=== PATIENT | female | born 1955 | race Two or more races ===

== ENCOUNTER 2020-03-28 08:34 | Outpatient (REF) | payer OTHER, SELFPAY ==
--- NOTE | 2020-03-28 08:41 | MM_ITS ---
EXAMINATION: MM SCREENING DIGITAL BREAST TOMOSYNTHESIS, BILATERAL CLINICAL INFORMATION: Screening. Asymptomatic. The lifetime risk of breast cancer based on the Tyrer-Cuzick Model is 8%. COMPARISON: Mammography: 05/08/2017, 06/18/2014 TECHNIQUE: Digital breast tomosynthesis is performed in both the craniocaudal and mediolateral oblique views along with computer-aided detection (CAD). Synthesized 2D images are generated from the tomosynthesis. FINDINGS: There are scattered areas of fibroglandular density (ACR BI-RADS breast composition Category b). There are no significant masses, abnormal calcifications, or other abnormalities. Parenchymal pattern is similar to prior exams. Nodular asymmetry posterior central 6:00 position right breast is stable. There is no developing density. The axilla and skin contours are unremarkable. IMPRESSION: No significant changes from prior study. ASSESSMENT: BI-RADS 2: Benign RECOMMENDATION: Routine annual mammography screening. This patient's information was entered into a reminder system with a target due date for their next mammogram.
== END 2020-03-28 08:35 | disposition home or self-care (01) ==
LOC: HO.MAMMO 08:34
PROVIDERS: PCP Internal Medicine; Visit Provider Internal Medicine
DX: Z12.31 Encounter for screening mammogram for malignant neoplasm of breast (principal)
CPT/HCPCS: 77063; 77067

== ENCOUNTER 2021-02-09 19:26 | Emergency (ER) | payer OTHER, SELFPAY ==
[2021-02-09 20:01] VITALS: BP 113/69; PULSE 71; RESP 18; TEMP 36.7; O2SAT 98; BMI 21.9
--- NOTE | 2021-02-09 20:30 | ED.GENADULT ---
HPI - General Adult General Chief complaint: General Medical Stated complaint: bee sting Time Seen by Provider: 02/09/21 20:28 Source: patient Mode of arrival: ambulatory Limitations: no limitations History of Present Illness HPI narrative: 65 y/o female presenting with red, painful bee sting to her left forearm that occurred 2 days ago. She reports the redness and warmth are new today. The area is itchy. She has no SOB or wheezing. No facial swelling. She thinks she got the stinger out when it happened. complaint: bee sting Onset (ago): day(s) (2) Location: left and upper extremity Radiation: non-radiation Severity: moderate Quality: burning and other (itching) Pain Consistency: constant Relieving factors: cold therapy and medication Associated symptoms: denies other symptoms Treatments prior to arrival: none Related Data Previous Rx's Medication Instructions Recorded cephalexin 500 mg capsule 500 mg PO Q6H 7 Days #28 cap 02/09/21 Allergies Allergy/AdvReac Type Severity Reaction Status Date / Time No Known Allergies Allergy Verified 02/09/21 20:00 Review of Systems Constitutional: Constitutional: Denies chills, Denies fever(s) and Denies weakness Eyes: Eyes: Reports no additional eye complaints and Denies itchy eyes ENT: Denies lip swelling, Denies throat swelling and Denies tongue swelling Cardiovascular: Cardiovascular: Denies chest pain and Denies dyspnea Respiratory: Respiratory: Denies dyspnea and Denies wheezing Musculoskeletal: Musculoskeletal: Denies arthralgias, Denies joint swelling, Denies limited range of motion and Denies tingling Integumentary/Breasts: Skin/Breast: Reports erythema, Reports skin pain and Reports skin swelling Neurologic: Denies Sensory deficit (Neuro), Denies tingling, Denies paresthesias and Denies weakness Hematologic/Lymphatic: Hematologic/Lymphatic: Denies easy bleeding, Denies easy bruising and Denies lymphadenopathy Allergic/Immunologic: Allergic/Immunologic: Denies urticaria, Denies itchy eyes, Denies lip swelling, Denies throat swelling, Denies tongue swelling and Denies wheezing PMFSH Past Medical History Medical History (Updated 02/09/21 @ 20:31 by YANDY London) High cholesterol Social History Social History Advance Directives: No Advance Directives Information Provided: Yes Physical Exam Vital Signs: Vital Signs: Last Vital Signs Temp 98.1 F 02/09/21 20:01 Pulse 71 02/09/21 20:01 Resp 18 02/09/21 20:01 BP 113/69 02/09/21 20:01 Pulse Ox 98 02/09/21 20:01 Body Mass Index 21.9 Appearance: Alert. Oriented X3. No acute distress. HEENT: normal inspection CVS: Normal heart rate and rhythm. Pulses normal. Respiratory: No respiratory distress. Skin: Skin warm and dry. Normal skin color. Normal skin turgor. No rashes. Extremities: left ventral forearm with moderate area of erythema, warmth and slight tenderness with central punctate lesion consistent with bee sting. No fluctuance. full ROM Of elbow and wrist. 2_ radial pulse. NV intact distally. Neuro: Oriented X 3. No motor deficit. No sensory deficit. Neuro: Sensory Exam: No Sensory deficit (Neuro) Course Course Course Narrative: 65 y/o female presenting with LUE erythema, warmth and tenderness 2 days after bee sting. Exam and clinical presentation are consistent with cellulitis. Will start on abx and benadryl and have her f/u with PCP. Area was marked with a skin pen and she was told to come back to the area if worsening. Stable for d/c home. Discharge Plan Discharge Clinical Impression: Cellulitis Patient Disposition: Home, Self-Care Instructions: Cellulitis (ED), Warm Compress or Soak (ED) Additional Instructions: Take the antibiotics as prescribed. Use warm compresses to the area several times per day. Elevate your arm when possible. Take Motrin and/or Tylenol as needed for pain. If you notice redness and swelling are worsening despite 24 hours of antibiotics, come back to the ER for further evaluation. Prescriptions: New cephalexin 500 mg capsule 500 mg PO Q6H 7 Days Qty: 28 RF: 0
[2021-02-09] MEDS: diphenhydrAMINE HCL 25 MG TABLET PO (21:32)
[2021-02-09] MEDS: cephALEXin 500 MG CAPSULE PO (21:33)
== END 2021-02-09 21:57 | disposition home or self-care (01) ==
PROVIDERS: Emergency Provider Emergency Medicine; PCP Internal Medicine
DX: L03.114 Cellulitis of left upper limb (principal); M79.632 Pain in left forearm
CPT/HCPCS: 99283; Q0163

== ENCOUNTER 2021-03-27 09:06 | Emergency (ER) | payer OTHER, SELFPAY ==
[2021-03-27 09:11] VITALS: BP 145/46; PULSE 82; RESP 16; TEMP 36.6; O2SAT 96; BMI 21.9
--- NOTE | 2021-03-27 09:17 | ED.GENADULT ---
HPI - General Adult General Chief complaint: Upper Respiratory Symptoms Stated complaint: flu like symptoms Time Seen by Provider: 03/27/21 09:16 Related Data Previous Rx's Medication Instructions Recorded cephalexin 500 mg capsule 500 mg PO Q6H 7 Days #28 cap 02/09/21 Allergies Allergy/AdvReac Type Severity Reaction Status Date / Time No Known Allergies Allergy Verified 02/09/21 20:00 PMFSH Past Medical History Medical History (Updated 02/10/21 @ 00:01 by Kianna Barajas) High cholesterol Social History Social History Advance Directives: No Physical Exam Vital Signs: Vital Signs: Last Vital Signs Temp 97.8 F 03/27/21 09:11 Pulse 82 03/27/21 09:11 Resp 16 03/27/21 09:11 BP 145/46 H 03/27/21 09:11 Pulse Ox 96 03/27/21 09:11 Body Mass Index 21.9 Discharge Plan Discharge Prescriptions: No Action cephalexin 500 mg capsule 500 mg PO Q6H 7 Days Qty: 28 RF: 0
--- NOTE | 2021-03-27 09:24 | ED.URI ---
HPI - URI/Sore Throat General Chief Complaint: Upper Respiratory Symptoms Stated Complaint: flu like symptoms Time Seen by Provider: 03/27/21 09:16 Related Data Previous Rx's Medication Instructions Recorded cephalexin 500 mg capsule 500 mg PO Q6H 7 Days #28 cap 02/09/21 azithromycin 500 mg tablet See Rx Instructions PO .COMPLEX #3 03/27/21 tab fluticasone propionate 50 1 spray INTRANASAL DAILY #16 g 03/27/21 mcg/actuation nasal spray,suspension (Allergy Relief (fluticasone)) [id number] 3.5 4 drp OTIC (EAR) LEFT Q8H #10 ml 03/27/21 mg/mL-10,000 unit/mL-1 % ear solution Allergies Allergy/AdvReac Type Severity Reaction Status Date / Time No Known Allergies Allergy Verified 02/09/21 20:00 [facility] Past Medical History Medical History High cholesterol Social History Social History Smoked in Last 30 Days: No Use of substances other than those prescribed or required for medical reasons: No Advance Directives: No Physical Exam Vital Signs: Vital Signs: Last Vital Signs Temp 97.8 F 03/27/21 09:11 Pulse 82 03/27/21 09:11 Resp 16 03/27/21 09:11 BP 145/46 H 03/27/21 09:11 Pulse Ox 96 03/27/21 09:11 Body Mass Index 21.9 Discharge Plan Discharge Clinical Impression: Acute infection of sinus Qualifiers: Sinusitis location: unspecified location Recurrence: not specified as recurrent Qualified Code(s): J01.90 - Acute sinusitis, unspecified Otitis externa Qualifiers: Otitis externa type: unspecified type Chronicity: acute Laterality: left Qualified Code(s): H60.502 - Unspecified acute noninfective otitis externa, left ear Patient Disposition: Home, Self-Care Instructions: Sinusitis (ED), Otitis Externa (ED) Additional Instructions: Drink plenty of fluids Take your antibiotics as instructed, do not skip any doses. Follow-up with her primary care provider You were tested for Flu/COVID/RSV you will receive a phone call with results Return to the emergency department with new or worsening symptoms. Prescriptions: New azithromycin 500 mg tablet See Rx Instructions PO .COMPLEX Qty: 3 RF: 0 kvzxfjrw-ydmrmzelg-SC 3.5-10,000-1 mg/mL-unit/mL-% solution 4 drp otic (ear) left Q8H Qty: 10 RF: 0 fluticasone propionate [Allergy Relief (fluticasone)] 50 mcg/actuation spray,suspension 1 spray intranasal DAILY Qty: 16 RF: 0 No Action cephalexin 500 mg capsule 500 mg PO Q6H 7 Days Qty: 28 RF: 0 Referrals: Debra Beckett MD [Primary Care Provider] - 2 days Interventions: ED Discharge Assessment Last Done: 03/27/21 09:58 Discharge Date/Time: 03/27/21 09:58
--- NOTE | 2021-03-27 09:27 | ED.GENADULT ---
HPI - General Adult General Chief complaint: Upper Respiratory Symptoms Stated complaint: flu like symptoms Time Seen by Provider: 03/27/21 09:16 Source: patient Mode of arrival: ambulatory Limitations: no limitations History of Present Illness HPI narrative: 65 yo female no known medical history presents to the ED with one week of facial pressure and left ear pain. She states she got her flu shot on Mar 15 and ever since then she has been feeling these symptoms. She states the ear pain is only when she touches her ear. She has been vaccinated against COVID-19. She reports yearly she gets sinus infections around this year and usually is treated with Z-Devon which provide symptomatic relief. She denies fevers, chills, shortness of breath, chest pain, nausea, vomiting, diarrhea, tinnitus, changes in hearing. Onset (ago): week(s) (1) Severity: moderate Related Data Previous Rx's Medication Instructions Recorded cephalexin 500 mg capsule 500 mg PO Q6H 7 Days #28 cap 02/09/21 azithromycin 500 mg tablet See Rx Instructions PO .COMPLEX #3 03/27/21 tab fluticasone propionate 50 1 spray INTRANASAL DAILY #16 g 03/27/21 mcg/actuation nasal spray,suspension (Allergy Relief (fluticasone)) [id number]-[id number]-nbjdobyod 3.5 4 drp OTIC (EAR) LEFT Q8H #10 ml 03/27/21 mg/mL-10,000 unit/mL-1 % ear solution Allergies Allergy/AdvReac Type Severity Reaction Status Date / Time No Known Allergies Allergy Verified 02/09/21 20:00 Review of Systems Review of Systems: Constitutional : No Weight loss, No Fever, No Chills, No Night Sweats, No Fatigue, NoMalaise ENT/Mouth: + ear pain, No sore throat, No Difficulty swallowing,+ facial pressure , + nasal congestion/rhinorrhea Cardiovascular : No Chest Pain, No SOB, No Dyspnea on Exertion, No Orthopnea, NoEdema, No Palpitations Respiratory : No Cough, No Sputum, No Wheezing, No Dyspnea Gastrointestinal : No Nausea, No Vomiting, No abdominal pain, No Diarrhea, No blood streaked emesis, No coffee-ground emesis, Genitourinary : No irregular bleeding, No Dysuria, No Urinary Frequency, No Hematuria,No Urinary Incontinence, No Urgency, No Flank Pain Musculoskeletal : No joint pain, No Myalgias, No Joint Swelling Skin : No Skin Lesions, No rash Neuro : No Weakness, No Numbness, No Paresthesias, No Dizziness, No Headache Endocrine : No Polyuria, No Polydipsia, No Temperature Intolerance Yes all other systems are reviewed and are negative [facility] Past Medical History Attestation statement: The following information was validated with the patient. Source: old records reviewed and nursing notes reviewed Medical History High cholesterol Social History Social History Smoked in Last 30 Days: No Use of substances other than those prescribed or required for medical reasons: No Advance Directives: No Physical Exam Vital Signs: Vital Signs: Last Vital Signs Temp 97.8 F 03/27/21 09:11 Pulse 82 03/27/21 09:11 Resp 16 03/27/21 09:11 BP 145/46 H 03/27/21 09:11 Pulse Ox 96 03/27/21 09:11 Body Mass Index 21.9 vital signs have been reviewed as normal and appeared to be correct. Blood pressure normal. Heart rate normal. Respiration rate normal. Temperature normal. Oxygen saturation normal. Appearance: Alert. Oriented X3. No acute distress. Head: Normal external exam. Normocephalic. Atraumatic. + ethmoid and maxillary sinus pressure worse with forward bending Eyes: PERRLA. EOMI. Conjunctiva and sclera normal. Eyelids normal. ENT: + pain to manipulation of L. Morillo and Tragus of left ear. TM's Normal, normal cone of light and landmarks. Pharynx normal. Uvula midline. Moist mucous membranes. No trismus noted. No drooling noted. No muffled voice noted. Neck: Normal inspection. Neck supple. FROM. No adenopathy. Thyroid Normal. No meningeal signs. No neck mass noted. CVS: Normal heart rate and rhythm. Heart sound normal. Pulses normal throughout. No murmurs/rales/gallops. Respiratory: No respiratory distress. Painless inspiration. Breath sounds normal. No wheezes/rales/rhonchi noted. Chest nontender. No accessory muscle usage noted or decreased air movement noted. Abdomen: Soft and nontender. Bowel sounds normal in all 4 quadrants. No distention noted. No organomegaly noted. No visible injury noted. Skin: Skin warm and dry. Normal skin color. Normal skin turgor. No rashes/lesions/lacerations noted. Extremities: No lower extremity edema. Extremities exhibit normal range of motion. Extremities nontender. Neuro: Oriented X 3. No motor deficit. No sensory deficit. Reflexes normal. Normal steady gait. No focal neuro deficits noted. Vascular: + radial pulses/+ 2 distal pedal pulses/+2 dorsalis pedis b/l. Normal cap refill. Course Course Course Narrative: 65-year-old female with no known medical history presents to the emergency department with 1 week of worsening facial pressure, and left-sided ear discomfort. She states she got her flu shot about a week ago, and since then she has been having the symptoms. Upon physical examination there is pain with manipulation of the pinna, tragus of the left ear. There is also increased pressure with forward bending over the maxillary and ethmoid sinuses. Vital signs are stable, patient is afebrile. Based on patient history, and physical exam finding she likely has left otitis externa. Unlikely this is otitis media, bilateral tympanic membranes have a good cone of light, and all landmarks are visible, the ear canal is free of erythema, and effusions. She also likely has sinusitis, she states that she frequently gets sinus infections, and this feels like her typical sinus infection. Will rule out flu/COVID/RSV. She will be called with positive and or negative results. Plan is to discharge her home with ear drops, a Z-Devon, fluticasone. Medical Decision Making Medical Records Medical records reviewed: Yes I reviewed the patient's medical records. Critical Care Time Critical Care Time Critical Care Time: No Discharge Plan Discharge Clinical Impression: Acute infection of sinus Qualifiers: Sinusitis location: unspecified location Recurrence: not specified as recurrent Qualified Code(s): J01.90 - Acute sinusitis, unspecified Otitis externa Qualifiers: Otitis externa type: unspecified type Chronicity: acute Laterality: left Qualified Code(s): H60.502 - Unspecified acute noninfective otitis externa, left ear Patient Disposition: Home, Self-Care Instructions: Sinusitis (ED), Otitis Externa (ED) Additional Instructions: Drink plenty of fluids Take your antibiotics as instructed, do not skip any doses. Follow-up with her primary care provider You were tested for Flu/COVID/RSV you will receive a phone call with results Return to the emergency department with new or worsening symptoms. Prescriptions: New azithromycin 500 mg tablet See Rx Instructions PO .COMPLEX Qty: 3 RF: 0 yfvbdhew-ltpawrtzr-FP 3.5-10,000-1 mg/mL-unit/mL-% solution 4 drp otic (ear) left Q8H Qty: 10 RF: 0 fluticasone propionate [Allergy Relief (fluticasone)] 50 mcg/actuation spray,suspension 1 spray intranasal DAILY Qty: 16 RF: 0 No Action cephalexin 500 mg capsule 500 mg PO Q6H 7 Days Qty: 28 RF: 0 Referrals: Debra Beckett MD [Primary Care Provider] - 2 days Interventions: ED Discharge Assessment Last Done: 03/27/21 09:58 Discharge Date/Time: 03/27/21 09:58
[2021-03-27 10:20] LABS: Influenza A PCR NEGATIVE (Negative); Influenza B PCR NEGATIVE (Negative); Resp Syncy Virus RNA Qual PCR POSITIVE (Negative); SARS COV2 PCR INHOUSE NEGATIVE (Negative)
== END 2021-03-27 09:58 | disposition home or self-care (01) ==
PROVIDERS: Physician Assistant Medical; Emergency Provider Emergency Medicine Emergency Medical Services; PCP Internal Medicine
DX: J01.90 Acute sinusitis, unspecified (principal); H60.502 Unspecified acute noninfective otitis externa, left ear; Z20.822 Contact with and (suspected) exposure to COVID-19; Z79.899 Other long term (current) drug therapy
CPT/HCPCS: 0241U; 36415; 99283; 99284

== ENCOUNTER 2022-04-29 06:44 | Outpatient (REF) | payer OTHER, SELFPAY ==
[2022-04-29 06:48] LABS: MANUAL DIFF FLAG NO
[2022-04-29 07:39] LABS: Basophils Absolute Auto 0.1 X10*3/uL (0.0-0.2); Basophils Percent Auto 1.1 % (0-2); Eosinophils Absolute Auto 0.1 X10*3/uL (0.0-0.4); Eosinophils Percent Auto 2.7 % (0-4); Hematocrit 43.8 % (37.0-47.0); Hemoglobin 14.4 g/dl (12.0-16.0); Imm Gran Abs Auto 0.01 X10*3/uL (0.00-0.03); Imm Gran Pct Auto 0.2 % (0.0-0.4); Lymphocytes Absolute Auto 1.9 X10*3/uL (1.2-4.9); Lymphocytes Percent Auto 42.8 % (20-40); Mean Corpuscular HGB Conc 32.9 g/dl (31.0-35.0); Mean Corpuscular Hemoglobin 28.5 pg (27.0-33.0); Mean Corpuscular Volume 86.7 fL (80.0-98.0); Mean Platelet Volume 9.6 fL (9.4-12.3); Monocytes Absolute Auto 0.5 X10*3/uL (0.1-1.2); Monocytes Percent Auto 11.1 % (2-11); Neutrophils Absolute Auto 1.9 x10*3/uL (2.0-8.3); Neutrophils Percent Auto 42.1 % (45-73); Platelet Count 291 X10*3/uL (160-400); Red Blood Count 5.05 X10*6/uL (4.20-5.50); Red Cell Distribution Width 12.2 % (11.0-16.0); White Blood Count 4.5 X10*3/uL (4.8-10.8)
[2022-04-29 07:56] LABS: Alanine Aminotransferase 26 U/L (0-31); Albumin Level 4.2 g/dL (3.5-5.0); Alkaline Phosphatase 85 U/L (39-117); Anion Gap 12 (12-20); Aspartate Amino Transferase 25 U/L (5-31); Bilirubin Total 0.7 mg/dL (0.0-1.0); Blood Urea Nitrogen 19 mg/dL (9-16); Calcium 9.5 mg/dL (8.4-10.2); Carbon Dioxide 29 mmol/L (22-29); Chloride 103 mmol/L (96-108); Cholesterol 232 mg/dL; Estimated Glomerular Filt Rate > 60; Glucose Fasting 89 mg/dL (60-99); HDL Cholesterol 46 mg/dL; LDL Cholesterol Calculated 167 mg/dl; Potassium 4.5 mmol/L (3.3-5.1); Sodium 139 mmol/L (135-145); Total Protein 7.2 g/dL (6.5-8.0); Triglycerides 95 mg/dL
[2022-04-29 08:22] LABS: Folate 16.7 ng/mL (> or = 4.0); Vitamin B12 425 pg/mL (200-900)
[2022-04-29 08:26] LABS: TSH reflex Free T4 1.17 uIU/mL (0.32-4.0)
[2022-04-29 12:41] LABS: Vitamin D 25-OH Total 17.2 ng/mL (>30)
== END 2022-04-29 06:45 | disposition home or self-care (01) ==
LOC: HO.LAB 06:44
PROVIDERS: PCP Internal Medicine; Visit Provider Nurse Practitioner Family
DX: Z00.00 Encounter for general adult medical examination without abnormal findings (principal)
CPT/HCPCS: 36415; 80053; 80061; 82306; 82607; 82746; 84443; 85025

== ENCOUNTER 2022-05-11 07:51 | Outpatient (REF) | payer OTHER, SELFPAY ==
--- NOTE | ~2022-05-11 | MM_ITS ---
EXAMINATION: BONE DENSITOMETRY CLINICAL INDICATION: Menopause. COMPARISON: Baseline BD dated 10/07/2014. TECHNIQUE: Using a [employer] DXA System (software version: 13.1) manufactured by [employer], dual-energy x-ray absorptiometry was performed of the lumbar spine and left hip. The images are of good technical quality. Summary results are attached. FINDINGS: AP SPINE L1-L4: Current: BMD 1.171 g/cm2, Z-score 1.9, T-score -0.1, normal, 7.6% decrease from baseline (<5% change is not significant). Baseline: BMD 1.268 g/cm2. LEFT FEMUR, NECK: Current: BMD 0.868 g/cm2, Z-score 0.6, T-score -1.2, osteopenia. Baseline: BMD 0.899 g/cm2. LEFT FEMUR, TOTAL: Current: BMD 0.928 g/cm2, Z-score 0.9, T-score -0.6, normal, 3.5% decrease from baseline (<5% change is not significant). Baseline: BMD 0.962 g/cm2. IDENTIFIED RISK FACTORS: Menopause. HISTORY OF FRACTURE: None listed. MEDICATIONS: None listed. MM/XR DEXA axial skeleton IMPRESSION: 1. DIAGNOSIS: Osteopenia based on the lowest T-score value of -1.2 in the femoral neck applying World Health Organization criteria. 2. 10-YEAR FRACTURE RISK PREDICTION, FRAX: Major osteoporotic fracture (clinical spine, forearm, hip or shoulder) 4.6%. Hip fracture 0.5%. 3. Treatment Recommendations: NOF guidelines recommend consideration for treatment in postmenopausal women and men age 50 and older presenting with the following: -A hip or vertebral (clinical or morphometric) fracture. -T-score less than or equal to -2.5 at the femoral neck or spine after appropriate evaluation to exclude secondary causes. -Low bone mass at the hip or spine and a 10-year fracture probability by FRAX of greater than or equal to 3% for hip fracture or greater than or equal to 20% for major osteoporotic fracture based on the [place] adapted WHO algorithm. 4. Other Recommendations: All treatment decisions require clinical judgment and consideration of individual patient factors, including patient preferences, comorbidities, previous drug use, risk factors not captured in the FRAX model (e.g. frailty, falls, vitamin D deficiency, increased bone turnover, interval significant decline in bone density) and possible under or overestimation of fracture risk by FRAX. Additional medical evaluation for secondary cause of low bone mineral density may be appropriate. FUTURE SCAN RECOMMENDATION: People with diagnosed cases of osteoporosis or at high risk for fracture should have regular bone mineral density tests. For patients eligible for Medicare, routine testing is allowed once every 2 years. The testing frequency can be increased to one year for patients who have rapidly progressing disease, those who are receiving or discontinuing medical therapy to restore bone mass, or have additional risk factors.
== END 2022-05-11 07:52 | disposition home or self-care (01) ==
LOC: HO.MAMMO 07:51
PROVIDERS: Visit Provider Nurse Practitioner Family
DX: Z13.820 Encounter for screening for osteoporosis (principal); Z78.0 Asymptomatic menopausal state
CPT/HCPCS: 77080

== ENCOUNTER 2022-06-14 08:37 | Outpatient (REF) | payer OTHER, SELFPAY ==
--- NOTE | ~2022-06-14 | MM_ITS ---
EXAMINATION: MM SCREENING DIGITAL BREAST TOMOSYNTHESIS, BILATERAL CLINICAL INFORMATION: Screening. Asymptomatic. The lifetime risk of breast cancer based on the Tyrer-Cuzick Model is 3%. COMPARISON: Mammography: March 28, 2020 and studies dating back to June 18, 2014 TECHNIQUE: Digital breast tomosynthesis is performed in both the craniocaudal and mediolateral oblique views along with computer-aided detection (CAD). Synthesized 2D images are generated from the tomosynthesis. FINDINGS: The breasts are heterogeneously dense, which may obscure small masses (ACR BI-RADS breast composition Category c). There are no significant masses, abnormal calcifications, or other abnormalities. MM/MM tomosynthesis screening BI IMPRESSION: No significant changes from prior exam. ASSESSMENT: BI-RADS 1: Negative RECOMMENDATION: Routine annual mammography screening. This patient's information was entered into a reminder system with a target due date for their next mammogram.
== END 2022-06-14 08:38 | disposition home or self-care (01) ==
LOC: HO.MAMMO 08:37
PROVIDERS: PCP Internal Medicine; Visit Provider Internal Medicine
DX: Z12.31 Encounter for screening mammogram for malignant neoplasm of breast (principal)
CPT/HCPCS: 77063; 77067

== ENCOUNTER 2022-09-20 15:08 | Outpatient (REF) | payer OTHER, SELFPAY ==
[2022-09-20 15:31] LABS: MANUAL DIFF FLAG NO
[2022-09-20 15:37] LABS: Basophils Absolute Auto 0.1 X10*3/uL (0.0-0.2); Basophils Percent Auto 1.4 % (0-2); Eosinophils Absolute Auto 0.1 X10*3/uL (0.0-0.4); Eosinophils Percent Auto 2.2 % (0-4); Hematocrit 43.3 % (37.0-47.0); Imm Gran Abs Auto 0.01 X10*3/uL (0.00-0.03); Imm Gran Pct Auto 0.2 % (0.0-0.4); Lymphocytes Absolute Auto 2.1 X10*3/uL (1.2-4.9); Lymphocytes Percent Auto 41.5 % (20-40); Mean Corpuscular HGB Conc 32.3 g/dl (31.0-35.0); Mean Corpuscular Volume 86.6 fL (80.0-98.0); Mean Platelet Volume 9.2 fL (9.4-12.3); Monocytes Absolute Auto 0.3 X10*3/uL (0.1-1.2); Monocytes Percent Auto 6.2 % (2-11); Neutrophils Absolute Auto 2.4 x10*3/uL (2.0-8.3); Neutrophils Percent Auto 48.5 % (45-73); Platelet Count 263 X10*3/uL (160-400); Red Cell Distribution Width 12.7 % (11.0-16.0)
[2022-09-20 16:30] LABS: Alanine Aminotransferase 21 U/L (0-31); Albumin Level 4.1 g/dL (3.5-5.0); Alkaline Phosphatase 78 U/L (39-117); Amylase 57 U/L (28-100); Anion Gap 11 (12-20); Aspartate Amino Transferase 20 U/L (5-31); Bilirubin Total 0.7 mg/dL (0.0-1.0); Blood Urea Nitrogen 20 mg/dL (9-16); C Reactive Protein 0.11 mg/dL (< or = 0.50); Calcium 9.2 mg/dL (8.4-10.2); Carbon Dioxide 29 mmol/L (22-29); Chloride 104 mmol/L (96-108); Estimated Glomerular Filt Rate > 60; Glucose Random 102 mg/dL (60-115); Lipase 16 U/L (8-78); Potassium 4.1 mmol/L (3.3-5.1); Sodium 140 mmol/L (135-145)
[2022-09-20 16:48] LABS: Vitamin D 25-OH Total 37.4 ng/mL (>30)
[2022-09-20 18:08] LABS: Appearance Urine Clear; Color Urine Yellow; Glucose Urine UA Negative (Negative); Leukocyte Esterase Urine Negative (Negative); Nitrite Urine Negative (Negative); PH 7.5 (5.0-9.0); Urine Blood Negative (Negative); Urine Ketones Negative (Negative); Urine Protein Negative (Neg-Trace)
== END 2022-09-20 15:09 | disposition home or self-care (01) ==
LOC: HO.LAB 15:08
PROVIDERS: Nurse Practitioner Family; PCP Internal Medicine; Visit Provider Nurse Practitioner Family
DX: R10.32 Left lower quadrant pain (principal); E55.9 Vitamin D deficiency, unspecified; Z13.0 Encounter for screening for diseases of the blood and blood-forming organs and certain disorders involving the immune mechanism
CPT/HCPCS: 36415; 80053; 81003; 82150; 82306; 83690; 85025; 86140

== ENCOUNTER 2022-11-02 06:50 | Emergency (ER) | payer OTHER, SELFPAY ==
[2022-11-02 07:04] VITALS: BP 105/63; PULSE 84; RESP 18; TEMP 36.7; O2SAT 95; BMI 22.7
--- NOTE | 2022-11-02 07:24 | ED.GENADULT ---
HPI - General Adult General Chief complaint: General Medical Stated complaint: migraine, throat pain, body pain x5 days Time Seen by Provider: 11/02/22 07:19 Source: patient, RN notes reviewed and old records reviewed Mode of arrival: ambulatory History of Present Illness HPI narrative: 67-year-old female with a past medical history of osteopenia, vitamin-D deficiency, presenting to the ED complaining of headache, sore throat, dry cough, myalgias/fatigue x few days. Denies known fever, chills, SOB/CP, abdominal pain, recent travel, sick contacts, vision change or loss. Denies headache being maximal at onset Onset (ago): day(s) Related Data Home Medications Medication Instructions Recorded Confirmed loratadine 10 mg tablet (Claritin) 10 mg PO DAILY 04/26/22 04/26/22 Previous Rx's Medication Instructions Recorded cholecalciferol (vitamin D3) 50 50 mcg PO DAILY #90 tabs 08/01/22 mcg (2,000 unit) tablet calcium carbonate 500 mg calcium 500 mg PO DAILY 90 days #90 tabs 10/25/22 (1,250 mg) tablet (Oyster Shell Calcium) Allergies Allergy/AdvReac Type Severity Reaction Status Date / Time No Known Allergies Allergy Verified 11/02/22 07:08 Review of Systems Review of Systems: Constitutional: No Fever, No Chills, +fatigue ENT/Mouth: No Ear Pain, + Nasal Congestion, No Sinus Pain, No Hoarseness, + sore throat, + Rhinorrhea, No Swallowing Difficulty Cardiovascular: No Chest Pain, No SOB Respiratory: + Cough, No Sputum, No Wheezing Gastrointestinal: No Nausea, No Vomiting, No Diarrhea, No Constipation, No Abdominal pain Genitourinary: No Dysuria, No Urinary Frequency, No Hematuria, No Urinary Incontinence/retention Musculoskeletal: No joint pain, + Myalgias, No Joint Swelling Skin: No Skin Lesions, No rash Neuro: No Weakness Yes all other systems are reviewed and are negative Constitutional: Constitutional: Reports as per [facility] Past Medical History Attestation statement: The following information was validated with the patient. Source: old records reviewed Medical History High cholesterol Left lower quadrant pain Social History Social History Housing: House Patient Tobacco Use Status: Never used Tobacco Advance Directives: Yes Advance Directives Information Provided: No Advance Directives on File: No service: No Cognitive needs: No Hearing needs: No Vision needs: No Physical Exam ED Vital Signs: Vital Signs - 24 hr 11/02/22 07:04 11/02/22 08:54 Temperature 98.1 F 97.2 F Pulse Rate 84 72 Respiratory Rate 18 18 Blood Pressure 105/63 111/61 Pulse Oximetry 95 99 Oxygen Delivery Method Room Air Room Air BMI result Body Mass Index 22.7 Const General: cooperative, healthy appearing and no acute distress Orientation/consciousness: patient oriented x3 Limitations: no limitations HENMT Head: Yes normal to inspection and Yes atraumatic Ears: hearing grossly normal bilaterally, external ears normal, TM's normal bilaterally and mastoids normal General nose exam: Normal external nose present Face and sinus: Yes normal facial exam Mouth: no drooling Throat: Yes uvula midline, No peritonsillar mass, Yes posterior oropharynx abnormal (Erythematous, no exudate), No uvula laterally displaced and No uvular edema Eyes General: appearance normal, both eyes and all related structures EOM: EOMs intact bilaterally Neck Other: + bilateral submandibular lymphadenopathy Neck: Yes normal visual inspection and Yes no meningeal signs Resp Effort & Inspection: normal respiratory effort and no respiratory distress Auscultation: clear to auscultation bilaterally, no rales, no rhonchi and no wheezes Cardio Rate: regular rate Heart sounds: S1 normal heart sound present and S2 normal heart sound present Skin Rashes: no rashes Wounds: no wounds Neuro General: patient oriented x3, tone normal and no meningeal signs Gait exam (Neuro): Normal gait present Extrem General: Yes normal to inspection Course Course Course Narrative: -COVID/flu/RSV and rapid strep negative Results discussed with patient including worrisome signs and symptoms and strict return precautions, and when to return to the emergency department. They verbalized understanding and feel safe for discharge at this time. Medications Administered Discontinued Medications Generic Name Dose Route Start Last Admin Trade Name Freq PRN Reason Stop Dose Admin Acetaminophen/Butalbital/Caffeine 1 tab 11/02/22 08:19 11/02/22 08:24 Butalb/Acetamin/Caff 50/325/40 Tablet PO 11/02/22 08:20 1 tab ONCE ONE Administration Medical Decision Making Medical Decision Making [facility] Narrative: 67-year-old female with a past medical history of osteopenia, vitamin-D deficiency, presenting to the ED complaining of headache, sore throat, dry cough, myalgias/fatigue x few days. On exam vital signs stable, NAD, nontoxic appearing, posterior or pharyngeal erythema noted. No tonsillar swelling/exudates. Uvula midline. No drooling, handling secretions, no respiratory distress. Lungs CTA. No focal neuro deficits. Concern for viral illness vs strep pharyngitis vs migraine headache. Lower suspicion for ICH/meningitis/encephalitis or pneumonia/bronchitis, no evidence of FIRST SAMPLER, mastoiditis or otitis Plan: COVID/flu/RSV and rapid strep testing Please refer to course for remaining clinical decision making, interpretation of labs/imaging results, and discussions with consultants and/or family members. Differential Diagnosis Differential Diagnoses: The differential diagnosis associated with the presentation includes As above Admission/Observation Consideration of admission/observation: Escalation of care including admission/observation considered Lab Data [facility] Lab Attestation statement: I reviewed the patient's lab results. Labs: Lab Results 11/02/22 11/02/22 Range/Units 07:38 07:45 Influenza Type A (PCR) NEGATIVE (Negative) Influenza Type B (PCR) NEGATIVE (Negative) RSV RNA Qual (PCR) NEGATIVE (Negative) SARS-CoV-2 RNA (RT-PCR) NEGATIVE (Negative) S. pyogenes GrpA PATITO Negative (Negative) Radiology Impression Discussion of test interpretation with radiology: I have reviewed the radiologist's reading. External Record Review External record reviewed: Inpatient record, Office record, Outpatient record, Prior outpatient labs, Prior outpatient radiology, Primary care record and Outside ED record Tests considered The following testing was considered but not selected: As above Discharge Plan Discharge Clinical Impression: Acute viral syndrome Patient Disposition: Home, Self-Care Instructions: Viral Syndrome (ED) Additional Instructions: You tested negative for COVID, flu, RSV, and strep throat Rest Stay hydrated Take Tylenol and Motrin as needed Follow-up with her doctor If symptoms persist or worsen return to the ED Prescriptions: No Action cholecalciferol (vitamin D3) 50 mcg (2,000 unit) tablet 50 mcg PO DAILY Qty: 90 0RF calcium carbonate [Oyster Shell Calcium] 500 mg calcium (1,250 mg) tablet 500 mg PO DAILY 90 Days Qty: 90 2RF loratadine [Claritin] 10 mg tablet 10 mg PO DAILY Referrals: Debra Beckett MD [Primary Care Provider] - Interventions: ED Discharge Assessment Last Done: 11/02/22 09:13 Discharge Date/Time: 11/02/22 09:13
[2022-11-02 08:05] LABS: IDNOW Serial# 6674DD1D; Strep A Nucleic Acid Negative (Negative)
[2022-11-02] MEDS: Butalb/Acetamin/Caff 50/325/40 TABLET 1 TAB PO (08:24)
[2022-11-02 08:25] LABS: Influenza A PCR NEGATIVE (Negative); Influenza B PCR NEGATIVE (Negative); Resp Syncy Virus RNA Qual PCR NEGATIVE (Negative); SARS COV2 PCR INHOUSE NEGATIVE (Negative)
[2022-11-02 08:54] VITALS: BP 111/61; PULSE 72; RESP 18; TEMP 36.2; O2SAT 99
== END 2022-11-02 09:13 | disposition home or self-care (01) ==
PROVIDERS: Physician Assistant; Emergency Provider Student in an Organized Health Care Education/Training Program; PCP Internal Medicine
DX: B34.9 Viral infection, unspecified (principal); G43.909 Migraine, unspecified, not intractable, without status migrainosus; M79.10 Myalgia, unspecified site; Z20.822 Contact with and (suspected) exposure to COVID-19; Z20.828 Contact with and (suspected) exposure to other viral communicable diseases
CPT/HCPCS: 0241U; 87651; 99283

== ENCOUNTER 2023-05-03 09:22 | Outpatient (AMB) | payer MEDICARE, SELFPAY ==
[2023-05-03 09:23] VITALS: BP 118/70; PULSE 74; O2SAT 98; BMI 23.4
--- NOTE | 2023-05-03 09:23 | A.OFFPC_ITS ---
Vital Signs 05/03/23 09:23 Height 5 ft 1 in Weight 124 lb BMI 23.4 BP 118/70 Blood Pressure Location Lt brachial Position Sitting Pulse 74 Pulse Source Pulse Oximeter Pulse Oximetry (%) 98 Oxygen Delivery Method Room Air Intake Visit Reasons: Annual exam Intake Note: Patient here for a physical exam Maintenance Man Required: No Accompanied by: Self / Same As Patient Allergies No Known Allergies Allergy (Verified 05/03/23 09:35) Medication List - Last Reconciled 05/03/23 by Debra Hart MD calcium carbonate (Oyster Shell Calcium) 500 mg PO DAILY 90 days cholecalciferol (vitamin D3) 50 mcg PO DAILY loratadine (Claritin) 10 mg PO DAILY Tobacco use date assessed: 09/20/22 Fall risk assessment: No Falls in past year Last assessed Fall Risk: 05/03/23 Dental Screening Dental Screen Date: 05/03/23 Did you have a dental visit in the last 12 months?: Yes Did you have a dental problem in the last 6 months where you did not have access to dental care?: No Was dental information given to patient?: Patient has dentist HPI HPI Comments History of Present Illness Details This is a 67-year-old female that comes for her physical exam. Last mammogram was May 2022 and was normal. No need for Pap smears due to age. Last colonoscopy was 2007 and was referred through open access again. Last bone density was 2021 in showed osteopenia which is treated with calcium and vitamin- D. No chest pain or shortness of breath. [facility] Medical History Left lower quadrant pain High cholesterol Surgical History History of tubal ligation Family History (Updated 05/03/23 @ 09:38 by Debra Hart MD) Father Cancer Mother Cancer Social History Housing: House Alcohol intake: never Patient Tobacco Use Status: Never used Tobacco e-Cigarette/Vaping Use: Never Used Second Hand Smoke Exposure: No service: No Current occupational status: retired Current occupational exposures/hazards: No Cognitive needs: No Hearing needs: No Vision needs: No Questionnaire Thrive Questionnaire Date Thrive assessed: 04/26/22 JOAQUIN-7 AMB Questionnaire JOAQUIN-7 Date JOAQUIN - 7 assessed: 09/20/22 Source: Developed by Drs. Boy Seals, Jenise Rolon, Tristen Wheeler and colleagues, with an educational tayler from [employer]. Review of Systems Const All systems reviewed & are unremarkable except as noted in HPI and below Eyes Reports no additional complaints, Denies change in vision and Denies other visual disturbances Card Denies chest pain at rest, Denies chest pain with activity, Denies edema, Denies irregular heart rhythm, Denies claudication, Denies dyspnea, Denies dyspnea on exertion, Denies orthopnea, Denies paroxysmal nocturnal dyspnea and Denies slow heart rate Resp Denies cough, Denies dyspnea and Denies dyspnea on exertion GI Denies abdominal pain, Denies change in bowel habits, Denies excessive flatus, Denies nausea and Denies vomiting Denies urinary incontinence, Denies urinary hesitancy and Denies urinary urgency Musc Denies abnormal gait, Denies atrophy, Denies deformity and Denies limited range of motion Skin/Breast Denies bleeding lesions, Denies changing lesions and Denies rash Neuro Denies abnormal gait and Denies lack of coordination Physical exam (Primary Care) Vital Signs: Last Vital Signs Pulse 74 05/03/23 09:23 BP 118/70 05/03/23 09:23 Pulse Ox 98 05/03/23 09:23 Oxygen Delivery Method Room Air 05/03/23 09:23 BMI result Body Mass Index 23.4 Tobacco/Smoking Status: Tobacco use Status Tobacco use date assessed 09/20/22 05/03/23 09:27 Patient Tobacco Use Status Never used Tobacco 05/03/23 09:27 Tobacco use type 05/03/23 09:27 e-Cigarette/Vaping Use Never Used 05/03/23 09:27 Thrive Assessment: Date of Thrive Assessment Date Thrive assessed 04/26/22 05/03/23 09:27 Const Orientation/consciousness: patient oriented x3 HENMT Head: Yes normal to inspection, Yes normocephalic and Yes atraumatic Ears: external ears normal Eyes General: appearance normal, both eyes and all related structures Eyelids: Yes eyelids normal Conjunctivae: conjunctivae normal Neck Neck: Yes normal visual inspection and Yes supple Resp Effort & Inspection: normal respiratory effort Auscultation: clear to auscultation bilaterally Cardio Jugular venous distension: no JVD Rate: regular rate Rhythm: regular rhythm Heart sounds: S1 normal heart sound present and S2 normal heart sound present GI Inspection: Yes normal to inspection Palpation (GI): Soft to palpation and nontender Auscultation: normal bowel sounds Skin General skin exam: no rashes or lesions noted Neuro General: patient oriented x3 and no focal motor deficits Extrem General: Yes full ROM Psych Appearance: grossly normal Office Procedures Flu Questionnaire Does the patient have a severe egg allergy?: No Does the patient have severe life threatening allergies?: No Does the patient have a fever or illness today?: No Has the patient ever had Guillain-Palmyra Syndrome?: No Has the patient ever had any past reaction to a flu shot?: No Immunizations flu vacc [id number] 6mos up(PF) 60 mcg(15 mcgx4)/0.5 mL IM syringe Performing Provider: Debra Hart MD Performing Location: [facility] Administered by: MOIZ Thayer on 05/03/23 09:49 Dose Route Admin Location Dispensed Lot Number Expiration Date [facility] Substation Operator Helper 0.5 mL IM Left Deltoid 0.5 mL [id number] 12/17/23 [id number] [employer] VIS Given Date VIS Provided VIS Publication Date 05/03/23 Single Vaccine 21 Eligibility Eligibility Date Funding Source Not VFC Eligible 05/03/23 Private pneumoc 20-karissa conj-dip cr(PF) 0.5 mL IM syringe Performing Provider: Debra Hart MD Performing Location: [facility] Administered by: MOIZ Thayer on 05/03/23 09:49 Dose Route Admin Location Dispensed Lot Number Expiration Date [employer] Substation Operator Helper 0.5 mL IM Right Deltoid 0.5 mL [id number] 02/18/24 [employer] VIS Given Date VIS Provided VIS Publication Date 05/03/23 Single Vaccine 21 Eligibility Eligibility Date Funding Source Not VFC Eligible 05/03/23 Private Assessment and Plan Assessment & Plan (1) Adult general medical exam: Code(s): Z00.00 - Encounter for general adult medical examination without abnormal findings Plan: Repeat in a year. Orders: Orders Influenza [id number] Immunization Today Z23 - Encounter for immunization Comprehensive [place]. Panel Fast Today Z00.00 - Encounter for general adult med ical examination without abnormal findings Vitamin D 25-OH Total Today E55.9 - Vitamin D deficiency, unspecified Lipid Panel Today E78.5 - Hyperlipidemia, unspecified Pneumococcal 20 Immunization Today Z23 - Encounter for immunization Referrals Open Access Screening Colonoscopy Referral Z12.11 - Encounter for screening for malignant neoplasm of colon Medications: New pneumoc 20-karissa conj-dip cr(PF) 0.5 mL IM ONCE 0.5 mL 0RF Z23 - Encounter for immunization flu vacc [id number] 6mos up(PF) 0.5 mL IM ONCE 0.5 mL 0RF Z23 - Encounter for immunization Coding Level of Care Code Est Pt Prev Care >65y(43647) Diagnoses Adult general medical exam Z00.00 Time Spent (min) 33
== END 2023-05-03 09:53 | disposition home or self-care (01) ==
PROVIDERS: Visit Provider Internal Medicine
DX: Z00.00 Encounter for general adult medical examination without abnormal findings (principal); Z23 Encounter for immunization
CPT/HCPCS: 90471; 90677; 90686; 99397

== ENCOUNTER 2023-06-16 09:09 | Outpatient (REF) | payer MEDICARE, SELFPAY ==
--- NOTE | ~2023-06-16 | MM_ITS ---
EXAMINATION: MM SCREENING DIGITAL BREAST TOMOSYNTHESIS, BILATERAL CLINICAL INFORMATION: Screening. Asymptomatic. COMPARISON: Mammography: 06/14/2022, 03/28/2020, and dating back to 2010. TECHNIQUE: Digital breast tomosynthesis is performed in both the craniocaudal and mediolateral oblique views along with computer-aided detection (CAD). Synthesized 2D images are generated from the tomosynthesis. FINDINGS: There are scattered areas of fibroglandular density (ACR BI-RADS breast composition Category b). There are no significant masses, abnormal calcifications, or other abnormalities. Parenchymal pattern is similar to prior exams. Nodular asymmetry posterior central 6:00 position right breast is stable. MM/MM tomosynthesis screening BI IMPRESSION: No mammographic evidence of malignancy. ASSESSMENT: BI-RADS BI-RADS 2 - Benign Findings RECOMMENDATION: Routine annual mammography screening. 1 year F/U This examination should not preclude the clinical evaluation of a suspicious palpable abnormality. This patient's information was entered into a reminder system with a target due date for their next mammogram.
== END 2023-06-16 09:10 | disposition home or self-care (01) ==
LOC: HO.MAMMO 09:09
PROVIDERS: Visit Provider Internal Medicine
DX: Z12.31 Encounter for screening mammogram for malignant neoplasm of breast (principal)
CPT/HCPCS: 77063; 77067

== ENCOUNTER → 2023-06-16 09:45 | Outpatient (BNV) | payer MEDICARE, SELFPAY | PROVIDERS: Visit Provider Radiology Diagnostic Radiology | DX: Z12.31 Encounter for screening mammogram for malignant neoplasm of breast (principal) | CPT/HCPCS: 77063; 77067 ==

== ENCOUNTER 2024-02-12 06:40 | Outpatient (REF) | payer MEDICARE, SELFPAY ==
[2024-02-12 07:59] LABS: Alanine Aminotransferase 18 U/L (0-31); Albumin Level 4.1 g/dL (3.5-5.0); Alkaline Phosphatase 76 U/L (39-117); Anion Gap 10 (12-20); Aspartate Amino Transferase 23 U/L (5-31); Blood Urea Nitrogen 15 mg/dL (9-16); Calcium 9.3 mg/dL (8.4-10.2); Carbon Dioxide 29 mmol/L (22-29); Chloride 106 mmol/L (96-108); Cholesterol 235 mg/dL (<200); Estimated Glomerular Filt Rate > 60; Glucose Fasting 90 mg/dL (60-99); HDL Cholesterol 51 mg/dL (>40); LDL Cholesterol Calculated 162 mg/dL (<100); Potassium 3.9 mmol/L (3.3-5.1); Sodium 141 mmol/L (135-145); Total Protein 7.2 g/dL (6.5-8.0); Triglycerides 112 mg/dL (<150)
[2024-02-12 08:06] LABS: Vitamin D 25-OH Total 25.9 ng/mL (>30)
== END 2024-02-12 06:41 | disposition home or self-care (01) ==
LOC: HO.LAB 06:40
PROVIDERS: PCP Internal Medicine; Visit Provider Internal Medicine
DX: Z00.00 Encounter for general adult medical examination without abnormal findings (principal); E55.9 Vitamin D deficiency, unspecified; E78.5 Hyperlipidemia, unspecified
CPT/HCPCS: 36415; 80053; 80061; 82306

== ENCOUNTER 2024-02-20 06:32 | Day surgery (SDC) | payer MEDICARE, SELFPAY ==
[2024-02-15 11:30] VITALS: BMI 23.4
--- NOTE | 2024-02-16 10:27 | HO.ANESPROP2 ---
Documented by User: Cesilia España NP 02/16/24 10:28 HPI - Anesthesia Eval Consult details Narrative: 68yo F for Colonoscopy PMFSH Active Problems Active Problems: All Active Problems Osteopenia (Acute) Low vitamin D level (Acute) Screening for breast cancer (Acute) Screening for colon cancer (Acute) Post-menopausal (Acute) Back pain (Acute) Adult general medical exam (Acute) Left lower quadrant pain (Acute) Past Medical History Medical History Osteopenia Left lower quadrant pain High cholesterol Family History Family History (Updated 05/03/23 @ 09:38 by Debra Hart MD) Father Cancer Mother Cancer Surgical History Surgical History History of tubal ligation Social History Social History Housing: House Alcohol intake: never Patient Tobacco Use Status: Never used Tobacco e-Cigarette/Vaping Use: Never Used Second Hand Smoke Exposure: No Have you been hit, kicked, punched, or otherwise hurt by someone within the past year? If so, by whom?: No Are you DNR?: No Advance Directives: No Advance Directives Information Provided: Yes Recently lost weight without trying: No Nutrition Risks: No Nutritional Risk Patient : No service: No Current occupational status: retired Current occupational exposures/hazards: No Cognitive needs: No Hearing needs: No Vision needs: No Meds Allergies Allergy/AdvReac Type Severity Reaction Status Date / Time No Known Allergies Allergy Verified 05/03/23 09:35 Home Medications ?Medication ?Instructions ?Recorded ?Confirmed ?Last Taken ?Type loratadine 10 mg tablet (Claritin) 10 mg PO DAILY 04/26/22 02/15/24 Unknown History Exam Height,Weight and Vital Signs: Height 5 ft 1 in Weight 56.245 kg Pertinent Lab Results Pertinent Lab Results: Laboratory Tests 09/20/22 02/12/24 15:28 06:54 WBC 5.0 Hgb 14.0 Hct 43.3 Plt Count 263 Sodium 141 Potassium 3.9 Chloride 106 Carbon Dioxide 29 BUN 15 Creatinine 0.73 Assessment and Plan Assessment Anesthesia Assessment: PAT Visit Documented by User: Dell Woodward MD 02/20/24 09:02 PMF Past Medical History Medical History Osteopenia Left lower quadrant pain High cholesterol Family History Family History (Updated 05/03/23 @ 09:38 by Debra Hart MD) Father Cancer Mother Cancer Family history of problems with anesthesia: No Surgical History Surgical History History of tubal ligation History of Problems with Anesthesia: No Social History Social History Housing: House Alcohol intake: never Patient Tobacco Use Status: Never used Tobacco e-Cigarette/Vaping Use: Never Used Second Hand Smoke Exposure: No Have you been hit, kicked, punched, or otherwise hurt by someone within the past year? If so, by whom?: No Are you DNR?: No Advance Directives: No Advance Directives Information Provided: Yes Recently lost weight without trying: No Nutrition Risks: No Nutritional Risk Patient : No service: No Current occupational status: retired Current occupational exposures/hazards: No Cognitive needs: No Hearing needs: No Vision needs: No Meds Allergies Allergy/AdvReac Type Severity Reaction Status Date / Time No Known Allergies Allergy Verified 05/03/23 09:35 Home Medications ?Medication ?Instructions ?Recorded ?Confirmed ?Last Taken ?Type loratadine 10 mg tablet (Claritin) 10 mg PO DAILY 04/26/22 02/15/24 Unknown History Exam Airway Mallampati Class: II TM Dist: <=3cm Neck ROM: Full Denture: Upper Heart: ok Lungs: ok Assessment and Plan Assessment Anesthesia Assessment: Anesthesia Plan Discussed and Chart Reviewed Final Anesthetic Review Family History of Problems with Anesthesia: No History of Problems with Anesthesia: No NPO: Yes ASA Class: II Final Preanesthetic Review: No Changes in Pt Med Stat, Meds/Allgs Chart Reviewed, Consent Obtained/Reviewed and Anes Risks/Benef Reviewed Patient Risk: Low Procedure Risk: Low Anesthetic Plan Anesthetic Plan: MAC: and Agree w/ Assess. and Plan Disposition: Standard PACU
[2024-02-20 07:31] VITALS: BP 126/68; PULSE 70; RESP 18; TEMP 36.3; O2SAT 97; BMI 22.3
[2024-02-20] MEDS: Lactated Ringers 1,000 ML 100 ML IVCONT (07:37)
--- NOTE | 2024-02-20 08:28 | MHC.SHP ---
Pre-Procedural Eval Section A - 24 Hr Update-Section A only Date of Service: 02/20/24 Section B - Complete if H&P > 30 days Chief Complaint: Encounter for screening for malignant neoplasm of Details of Present Illness: Left lower quadrant pain High cholesterol Surgical History History of tubal ligation Family History (Updated 05/03/23 @ 09:38 by Debra Hart MD) Father Cancer Mother Cancer Present Medications: see Short Stay Collaborative assessment Allergies: Allergies Allergy/AdvReac Type Severity Reaction Status Date / Time No Known Allergies Allergy Verified 05/03/23 09:35 Review of Systems Review of Systems Comment: That point ROS negative Exam Exam Comment: Gen appear: No acute distress HEENT: no icterus Chest: No overt resp distress Abd: soft, nontender, nondistended Psych: Stable affect, answering questions appropriately Neuro: A/Ox3 noted to move all extremities spontaneously Ext: no peripheral edema Plan Diagnosis/Plan: Unchanged I have reviewed the history and physical and performed a pertinent physical examination on my patient. No changes have occurred unless specified. Here for open access colonoscopy for screening. Previous colo egative per patient report. Time Spent With Patient Time: Total time managing care of this patient today ____ minutes.
--- NOTE | 2024-02-20 08:35 | P.OPN-COLO_ITS ---
Colonoscopy Operative Note Operative Note Date of Service: 02/20/24 Narrative: Procedure: Colonoscopy Indication: Screening Endoscopist: Laurie Mir MD Anesthesia Provider: Dr Dell Woodward Anesthesia type: MAC Instrument: Olympus [id number]-[id number] Consent: Indication, risks vs benefits, and alternatives were discussed with the patient who gave written informed consent to proceed. EKG, pulse, pulse oximetry and blood pressure were monitored throughout the procedure. Please see anesthesia flowsheet. Procedure: The patient was brought to the procedure room and placed in the left lateral decubitus position. IV medications were administered by the anesthesia provider in attendance. A digital rectal exam was performed which was abnormal due to finding of hemorrhoids. A distal attachment cap was affixed to the tip of the colonoscope which was then inserted through the anus and advanced through the colon to the cecum at 70cm,and terminal ileum. Appendiceal orifice and ileocecal valve were identified. Mucosa was carefully examined under high definition white light as the instrument was slowly withdrawn in a retrograde panoramic fashion. Retroflexion was performed in rectum. The procedure was not difficult. There were no immediate obvious complications. The quality of the prep was BBPS: 1+2+2 = inadequate Withdrawal time 9 minutes. Limitations: No limitations. Findings: Mucosa: Copious liquid stool melania in R colon. Cecal pouch not adequately visualized. Overall mucosa appeared normal to terminal ileum. Protruding lesions: * 1 sessile polyp of size 10 mm in sigmoid colon at 30 cm. Cold snare polypectomy was performed. The polyp was completely removed and retrieved. * Medium internal hemorrhoids without stigmata of recent bleeding. Excavated lesions: * Diffuse diverticulosis of left sided colon. Impression: 1. Normal colon and terminal ileum mucosa 2. Total of 1 polyps removed 3. External and internal hemorrhoids 4. Diverticulosis Recommendations: - Follow path results. - Repeat colonoscopy in 1-2 years due to prep.
[2024-02-20 09:11] VITALS: BP 91/50; PULSE 63; RESP 16; TEMP 36.1; O2SAT 98
[2024-02-20 09:25] VITALS: BP 91/50; PULSE 65; RESP 16; TEMP 36.1; O2SAT 97
== END 2024-02-20 10:05 | disposition home or self-care (01) ==
PROVIDERS: PCP Internal Medicine; Visit Provider Internal Medicine
PROC: 0DJD8ZZ Inspection of Lower Intestinal Tract, Via Natural or Artificial Opening Endoscopic (ICD-10-PCS; CPT 45378; principal; 2024-02-20 08:20)
DX: Z12.11 Encounter for screening for malignant neoplasm of colon (principal); D12.5 Benign neoplasm of sigmoid colon; K57.30 Diverticulosis of large intestine without perforation or abscess without bleeding; K64.8 Other hemorrhoids; K64.4 Residual hemorrhoidal skin tags; M85.80 Other specified disorders of bone density and structure, unspecified site; E78.00 Pure hypercholesterolemia, unspecified; Z79.899 Other long term (current) drug therapy
CPT/HCPCS: 45385; 88305; J2704

== ENCOUNTER → 2024-02-20 06:32 | Outpatient (BNV) | payer MEDICARE, SELFPAY | PROVIDERS: PCP Internal Medicine; Visit Provider Internal Medicine | DX: D12.5 Benign neoplasm of sigmoid colon (principal); K64.8 Other hemorrhoids; K57.30 Diverticulosis of large intestine without perforation or abscess without bleeding | CPT/HCPCS: 45385 ==

== ENCOUNTER 2024-05-09 09:03 | Outpatient (AMB) | payer MEDICARE, SELFPAY ==
--- NOTE | 2024-05-09 09:14 | MHC.PC.OV ---
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 Accompanied by: Self / Same As Patient Allergies No Known Allergies Allergy (Verified 05/09/24 09:39) Medication List - Last Reconciled 05/09/24 by Debra Hart MD atorvastatin 10 mg PO BEDTIME 90 days calcium carbonate (Oyster Shell Calcium) 500 mg PO DAILY 90 days cholecalciferol (vitamin D3) 50 mcg PO DAILY loratadine (Claritin) 10 mg PO DAILY Tobacco use date assessed: 05/09/24 Fall risk assessment: No Falls in past year Last assessed Fall Risk: 05/09/24 Dental Screening Dental Screen Date: 05/09/24 Did you have a dental visit in the last 12 months?: Yes Did you have a dental problem in the last 6 months where you did not have access to dental care?: No Was dental information given to patient?: Patient has dentist HPI HPI Comments History of Present Illness Details The patient is a 68-year-old female presenting with concerns related to hypertension and general health maintenance as part of an annual physical examination. Her blood pressure was noted to be elevated at 140/90 mmHg, with prior hypertension management being discussed. The patient has a medication history of calcium supplementation at 500 mg daily for osteopenia, diagnosed previously and confirmed with a bone density scan last conducted in April 2022. A follow-up scan is planned for this year. Additionally, she reported a history of hyperlipidemia with a total cholesterol level of 235 mg/dL. The patient's risk of cardiovascular events, assessed using the [place] Risk Score, was calculated at 5.1%. She previously used atorvastatin 10 mg nightly, but there were issues in January as she did not receive her medication. A tubular adenoma was identified during a colonoscopy, necessitating follow-up in 3 to 5 years. There is a family history of bone cancer in both parents. The patient denied any chest pain, fever, cough, or shortness of breath but described occasional left-sided abdominal pain for the past year. The pain is intermittent, reportedly unrelated to food intake or physical exertion, and does not radiate. - Bone densitometry due this year. - Recommencement of atorvastatin 10 mg for hyperlipidemia. - Pneumonia vaccination recommended due to prior vaccination being over five years ago and before age 65. - Recent mammogram in May last year, normal results. - Influenza vaccination administration during visit. [facility] Medical History (Updated 05/09/24 @ 09:46 by Debra Hart MD) Osteopenia Left lower quadrant pain High cholesterol Surgical History History of colonoscopy History of tubal ligation Family History (Updated 05/09/24 @ 09:44 by Debra Hart MD) Father Cancer Mother Cancer Social History Housing: House Alcohol intake: never Patient Tobacco Use Status: Never used Tobacco e-Cigarette/Vaping Use: Never Used Second Hand Smoke Exposure: No service: No Current occupational status: retired Current occupational exposures/hazards: No Cognitive needs: No Hearing needs: No Vision needs: Yes Questionnaire PHQ-9 Over the last 2 weeks, how often have you been bothered by any of the following problems? 1. Little interest or pleasure in doing things: not at all 2. Feeling down, depressed, or hopeless: not at all 3. Trouble falling or staying asleep, or sleeping too much: not at all 4. Feeling tired or having little energy: not at all 5. Poor appetite or overeating: not at all 6. Feeling bad about yourself - or that you are a failure or have let yourself or your family down: not at all 7. Trouble concentrating on things, such as reading the newspaper or watching television: not at all 8. Moving or speaking so slowly that other people could have noticed. Or the opposite - being so fidgety or restless that you have been moving around a lot more than usual: not at all 9. Thoughts that you would be better off or of hurting yourself in some way: not at all Total score: 0 Depression Screening Interpretation: Negative Depression Screening Done: Yes 03438 - PHQ-9 Billing: Yes Source: Developed by Drs. Boy Seals, Jenise Rolon, Tristen Wheeler and colleagues, with an educational tayler from [employer]. Thrive Questionnaire Date Thrive assessed: 05/02/24 I am a: Patient What is your living situation today?: I have a steady place to live Within the past 12 months, did the food you bought not last and you didn't have the money to get more?: I choose not to answer this question Within the past 12 months, did you worry whether your food would run out before you got money to buy more?: I choose not to answer this question Do you have trouble paying for medicines?: I choose not to answer this question Do you have trouble getting transportation to medical appointments?: I choose not to answer this question Do you have trouble paying your heating and electricity bill?: I choose not to answer this question Do you have trouble taking care of your child, family member or friend?: I choose not to answer this question Do you have trouble with day-to-day activities such as bathing, preparing meals, shopping, managing finances, etc.?: I choose not to answer this question Are you currently unemployed and looking for a job?: I choose not to answer this question Are you interested in more education?: I choose not to answer this question Please select the resources that you would like help with: None Currently or been in a relationship where the following occur: I choose not to answer THRIVE Score: 0 AUDIT C Alcohol Use Questionnaire (AUDIT-C) 1. How often do you have a drink containing alcohol?: Never Total Score: 0 Score Reviewed/Action Taken: No JOAQUIN-7 AMB Questionnaire JOAQUIN-7 Date JOAQUIN - 7 assessed: 05/09/24 Feeling nervous, anxious, or on edge: 0 = Not at all Not being able to stop or control worryin = Not at all Worrying too much about different things: 0 = Not at all Trouble relaxin = Not at all Being so restless that it is hard to sit still: 0 = Not at all Becoming easily annoyed or irritable: 0 = Not at all Feeling afraid as if something awful might happen: 0 = Not at all Total JOAQUIN-7 score (0-4 normal; 5-9 mild; 10-14 moderate; 15-21 severe): 0 Source: Developed by Drs. Boy Seals, Jenise Rolon, Tristen Wheeler and colleagues, with an educational tayler from [employer]. Review of Systems Const All systems reviewed & are unremarkable except as noted in HPI and below Card Denies chest pain at rest, Denies chest pain with activity, Denies edema, Denies irregular heart rhythm, Denies claudication, Denies dyspnea, Denies dyspnea on exertion, Denies orthopnea, Denies paroxysmal nocturnal dyspnea and Denies slow heart rate Resp Denies cough, Denies dyspnea and Denies dyspnea on exertion GI Reports abdominal pain, Denies change in bowel habits, Denies excessive flatus, Denies nausea and Denies vomiting Denies urinary incontinence, Denies urinary hesitancy and Denies urinary urgency Neuro Denies lack of coordination Physical exam (Primary Care) Vital Signs: Last Vital Signs BP 140/90 H 05/09/24 09:15 BMI result Body Mass Index 22.9 Tobacco/Smoking Status: Tobacco use Status Tobacco use date assessed 05/09/24 05/09/24 09:20 Patient Tobacco Use Status Never used Tobacco 05/09/24 09:20 Tobacco use type 05/03/23 09:52 e-Cigarette/Vaping Use Never Used 05/09/24 09:20 PHQ-9: PHQ-9 Score PHQ-9: Total score 0 05/09/24 09:52 Depression Screening Interpretation: Negative Thrive Assessment: Date of Thrive Assessment Date Thrive assessed 05/02/24 05/09/24 09:20 Currently or been in a relationship where the following occur: I choose not to answer [facility] Head: Yes normal to inspection, Yes normocephalic and Yes atraumatic Ears: external ears normal Eyes General: appearance normal, both eyes and all related structures Eyelids: Yes eyelids normal Conjunctivae: conjunctivae normal Neck Neck: Yes normal visual inspection and Yes supple Resp Effort & Inspection: normal respiratory effort Auscultation: clear to auscultation bilaterally Cardio Jugular venous distension: no JVD Rate: regular rate Rhythm: regular rhythm Heart sounds: S1 normal heart sound present and S2 normal heart sound present GI Inspection: Yes normal to inspection Palpation (GI): Soft to palpation and nontender Auscultation: normal bowel sounds Skin General skin exam: no rashes or lesions noted Neuro General: no focal motor deficits Extrem General: Yes full ROM Psych Appearance: grossly normal Office Procedures Flu Questionnaire Does the patient have a severe egg allergy?: No Does the patient have severe life threatening allergies?: No Does the patient have a fever or illness today?: No Has the patient ever had Guillain-Wingate Syndrome?: No Has the patient ever had any past reaction to a flu shot?: No Immunizations Fluarix Triv 8547-6781 (PF) 45 mcg (15 mcg x 3)/0.5 mL IM syringe Performing Provider: Debra Hart MD Performing Location: [facility] Administered by: MOIZ Thayer on 05/09/24 09:57 Dose Route Admin Location Dispensed Lot Number Expiration Date [facility] Cell Builder 0.5 mL IM Left Deltoid 0.5 mL [id number] 12/16/24 [id number] [employer] VIS Given Date VIS Provided VIS Publication Date 05/09/24 Single Vaccine 21 Eligibility Eligibility Date Funding Source Not VFC Eligible 05/09/24 Private pneumoc 20-karissa conj-dip cr(PF) 0.5 mL IM syringe Performing Provider: Debra Hart MD Performing Location: [facility] Adult Primary [facility] [place] Administered by: MOIZ Thayer on 05/09/24 09:57 Dose Route Admin Location Dispensed Lot Number Expiration Date [facility] Cell Builder 0.5 mL IM Right Deltoid 0.5 mL [id number] 05/19/25 [id number] [email or web address] VIS Given Date VIS Provided VIS Publication Date 05/09/24 Single Vaccine 21 Eligibility Eligibility Date Funding Source Not VFC Eligible 05/09/24 Private Coding Level of Care Code Est Pt Level 3 (62590) Est Pt Prev Care >65y(48143) Diagnoses Adult general medical exam Z00.00 Left lower quadrant abdominal pain R10.32 Additional Codes PHQ-9 - 24479 - PHQ-9 Billing: Yes ([id number]) Time Spent (min) 34 Assessment & Plan Assessment & Plan (1) Adult general medical exam: Code(s): Z00.00 - Encounter for general adult medical examination without abnormal findings Category: Medical (2) Left lower quadrant abdominal pain: Code(s): R10.32 - Left lower quadrant pain Category: Medical Plan 1. Hypertension: - Encourage dietary modifications to manage blood pressure. 2. Osteopenia: - Schedule a bone density scan for this year. 3. Hyperlipidemia: - Repeat lipid profile in six months. 4. Abdominal pain: - US abdomen ordered. 5. Health Maintenance: - Schedule follow-up colonoscopy in three to five years due to tubular adenoma history. Patient was informed and verbally consented to the use of an ambient scribe for clinic note documentation during this visit. I discussed the patient's elevated blood pressure and the necessity of monitoring it as well as implementing dietary changes. We addressed her previous osteopenia diagnosis and planned a follow-up bone densitometry. I prescribed atorvastatin to manage her cholesterol, especially given her [place] Risk Score being close to the threshold for intervention. We agreed on scheduling a repeat colonoscopy due to her history of tubular adenoma. I also recommended pneumonia and influenza vaccinations, which she accepted. Orders: Orders Influenza [id number] Immunization Today Z23 - Encounter for immunization XR DEXA axial skeleton Today Z78.0 - Asymptomatic menopausal state US abdomen complete Today R10.32 - Left lower quadrant pain Lipid Panel 6 Months E78.5 - Hyperlipidemia, unspecified Vitamin D 25-OH Total 6 Months E55.9 - Vitamin D deficiency, unspecified Comprehensive [place]. Panel Fast 6 Months R10.32 - Left lower quadrant pain Pneumococcal 20 Immunization Today Z23 - Encounter for immunization Medications: Refilled cholecalciferol (vitamin D3) 50 mcg PO DAILY 90 tabs 0RF R79.89 - Other specified abnormal findings of blood chemistry atorvastatin 10 mg PO BEDTIME 90 tabs 1RF 90 days calcium carbonate (Oyster Shell Calcium) 500 mg PO DAILY 90 tabs 2RF 90 days M85.80 - Other specified disorders of bone density and structure, unspecified site Patient Instructions: - Schedule an appointment to monitor blood pressure in three weeks. - Adhere to a heart-healthy diet reducing salt intake. - Continue calcium supplementation as previously directed. - Resume atorvastatin 10 mg nightly. - Receive the pneumonia and influenza vaccines today. - Follow up for a bone density scan this year. - Ensure scheduling colonoscopy within the recommended time frame. - Return for laboratory testing in six months.
[2024-05-09 09:15] VITALS: BP 140/90; BMI 22.9
== END 2024-05-09 10:07 | disposition home or self-care (01) ==
PROVIDERS: PCP Internal Medicine; Visit Provider Internal Medicine
DX: Z00.00 Encounter for general adult medical examination without abnormal findings (principal); R10.32 Left lower quadrant pain; Z23 Encounter for immunization

== ENCOUNTER → 2024-05-09 09:03 | Outpatient (BNVA) | payer MEDICARE, SELFPAY | PROVIDERS: PCP Internal Medicine; Visit Provider Internal Medicine | DX: Z00.01 Encounter for general adult medical examination with abnormal findings (principal); Z23 Encounter for immunization; R10.32 Left lower quadrant pain; E78.5 Hyperlipidemia, unspecified; E55.9 Vitamin D deficiency, unspecified; R79.89 Other specified abnormal findings of blood chemistry; M85.80 Other specified disorders of bone density and structure, unspecified site | CPT/HCPCS: 90471; 90656; 90677; 96127; 99212; 99397 ==

== ENCOUNTER 2024-05-29 07:07 | Outpatient (REF) | payer MEDICARE, SELFPAY ==
--- OUTSIDE RECORDS SUMMARY | 2024-05-29 22:45 | XMS_ITS | Data Portability ---
Author Organization [facility], [address] Address [address] [place] [address] Care Team Providers Care Silver Solution Mixer Name Role Phone MIKEL BARRIOS Primary Care Provider [phone] Assessment No assessment recorded. Plan of Treatment Reminders Order Date Submit Date Provider Last Modified By Organization Details Last Modified Time Details Appointments None recorded. Lab None recorded. Referral None recorded. Procedures None recorded. Surgeries None recorded. Imaging None recorded. Medication Orders benzonatate 100 mg capsule 2022 023 [id number], [address] [place], [address], 3 16:21:21 prednisone 10 mg tablet 2022 023 [id number], [address] [place], [address], 3 16:21:22 albuterol sulfate 2.5 mg/3 mL (0.083 %) solution for nebulizatio n 2022 023 [email or web address] Not available 3 15:54:41 ipratropium bromide 0.02 % solution for inhalation 2022 023 [email or web address] Not available 3 15:54:41 Patient TargetsNo targets recorded. Patient Instructions Encounter Date Encounter Id Patient Instructions Last Modified By Organization Details Last Modified Time 12/16/2022 [id number] cough: care instructions Not available 12/16/2022 15:40:47 You were prescribed Prednisone - Here is some general Information regarding this medication. 1. Make sure you take with Food 2. Do not take right before bedtime -this should be taken during the day because it may make you a little more wired. May keep you from sleeping. 3. Prednisone will increase glucose -so if you are a diabetic then you will need to monitor your glucose closely. Please d/c if glucose goes above 300. 4. Do not take this medication with Ibuprofen [email or web address] Not available 12/16/2022 15:48:08 Reason for Referral None Reported. Problems No Known Problems Procedures Surgical History Date Name Laterality Status Provider Name and Address Organization Details Recorded Time Nebulizer Treatment completed YANDY CHAUHAN [facility] [place], [address], [place] - [facility] 12/16/2022 16:20:58 Imaging Results None recorded. Procedure Notes None recorded. Medical Equipment None Reported. Allergies No known drug allergies Medications Name Sig Start Date Stop Date Status Note LastModified by Organization Details LastModified Time prednisone 10 mg tablet 3 pills po qd x 3 days, 2 pills po qd x 3 days, 1 pill po qd x 3 days 2022 active Not Available Not Available Not Avai lable albuterol sulfate 2.5 mg/3 mL (0.083 %) solution for nebulization Inhale 3 mL by nebulizatio n route. 2022 active Not Available Not Available Not Avai lable Claritin 10 mg tablet Take 1 tablet every day by oral route. active Not Available Not Available No t Available benzonatate 100 mg capsule Take 1 capsule 3 times a day by oral route. 2022 active Not Available Not Available Not Avai lable ipratropium bromide 0.02 % solution for inhalation Inhale 2.5 mL by inhalation route. 2022 active Not Available Not Available Not Avai lable Oyster Shell Calcium active Not Available Not Available Not Available Vitamin D3 active Not Available Not Av ailable Not Available Tylenol 325 mg capsule Take by oral route. active Not Available Not Available Not Available Vitals Date Recorded Body height Body mass index (BMI) Body weight Body temperature Respiratory rate Oxygen saturation Oxygen saturation in Arterial blood by Pulse oximetry Heart rate Systolic blood pressure Diastolic blood pressure Provider Name and Address Organization Details Last Updated DateTime 3 157.48 cm 23.8 kg/m2 10836.0 1 g 97 [degF] 18 /min 98 % 98 % 81 /min 132 mm[Hg] 82 mm[Hg] YESSENIA PEREA [place] - [facility] 15:24:36 Social History Question Answer Notes LastModified by Organizat ion Details LastModified Time Tobacco Smoking Status Never Smoker YESSENIA PEREA ida [place] - [facility] 12/16/2022 15:23:03 What Is Your Level Of Alcohol Consumption? None [email or web address] Information not available 12/16/2022 Do You Use Any Illicit Or Recreational Drugs? No Information not available 12/16/2022 Have You Recently Traveled Abroad? No [email or web address] Information not available 12/16/2022 Do You Or Have You Ever Used Any Other Forms Of Tobacco Or Nicotine? No Information not available 12/16/2022 Sex: Unknown Functional Status None recorded. Mental Status None recorded. Family History Relationship Description Onset Age of this Age Resolved Age Notes LastModified by Organization Details LastModified Time Father No current problems or disability [email or web address] Not available 12/16 15:22:49 Mother No current problems or disability [email or web address] Not available 12/16 15:22:49 Medical History No medical history recorded. Gynecological HistoryNo gynecological history recorded. Obstetrics History GPAL:G 0 P 0 0 0 0 Past Encounters Encounter ID Performer Location Encounter Start Date Encounter Closed Date Diagnosis/Indication Diagnosis SNOMED-CT Code Diagnosis ICD10 Code [id number] [address] [address] [place] [address] 11/28/2021 09:41:55 11/28/2021 13:44:50 [id number] [facility] [address] [address] [place] [address] 12/16/2022 12:07:28 12/16/2022 16:23:31 Cough 96685992 R05.9 Laryngotracheitis 707328 01 J04.2 Health Concerns Section Related Observation LastModified by Organization Detai ls LastModified Time None Recorded Concern Status LastModified by Organization Details LastModified Time None Recorded Advance Directives Directive None Recorded Payers Encounter Date Sequence Insurance Name Policy Number Policy Strauss Covered Member ID Strauss Member ID Guarantor Name 11/28/2021 1 [facility] [id number] Christi Ahn [id number] Christi Ahn 12/16/2022 1 [facility] [id number] Christi Ahn [id number] Christi Ahn Notes Date Note Type Note Provider Name and Address Organization Details Recorded Time 3 text/html CoughReported bypatient.source of patient informationInformation obtained from patient; Patient arrived at Urgent Care ambulatory Quality:dry Severity:mild Duration:4 days Timing:sudden Context:non-smoker; No exposures to chemicals. Modifying Factors:Cough Suppressant; Lots of OTC medication. Associated Symptoms:no feverNotes:The patient reports headache and cough for about 4 days. The patient states that she gets this every year at the same time. The patient reports no history of asthma or COPD. Non smoker. Denies runny nose or sore throat. No ear pain. YANDY CHAUHAN [address] [place], [place] [address], [address], [place] - [facility] 12/16/2022 16:21:55 OBGyn Episode No OBEpisode recorded.
== END 2024-05-29 07:08 | disposition home or self-care (01) ==
LOC: HO.US 07:07
PROVIDERS: PCP Internal Medicine; Visit Provider Internal Medicine
DX: R10.32 Left lower quadrant pain (principal)
CPT/HCPCS: 76700

== ENCOUNTER 2024-06-26 08:04 | Outpatient (REF) | payer MEDICARE, SELFPAY ==
--- NOTE | ~2024-06-26 | MM_ITS ---
EXAMINATION: Dual-Energy X-ray Absorptiometry - Bone Density Study HISTORY: Estrogen deficiency TECHNIQUE: [employer] Dual energy absorptiometry (DEXA) of the lumbar spine, total left hip, and femoral neck was performed. COMPARISON: Comparison is made with the prior examination dated 05/11/2022. FINDINGS: The bone mineral density of the lumbar spine is 0.048 with a T-score of -1.1, and a Z-score of 0.9. This represents a BMD change of -10.5% compared to the prior exam. This is statistically significant. The bone mineral density of the left total hip is 0.895 with a T-score of -0.9, and a Z-score of 0.8. This represents BMD change of -3.6% compared to the prior exam. This is not statistically significant. The bone mineral density of the left femoral neck is 0.794 with a T-score of -1.8, and a Z-score of 0.1. This represents BMD change of -8.5% compared to the prior exam. FRACTURE RISK: The FRAX index suggests a ten year probability of major osteoporotic fracture of 5.5%, and of hip fracture 0.9%. MM/XR DEXA axial skeleton IMPRESSION: Based on bone mineral density, and according to World Health Organization (WHO) criteria, the diagnosis is consistent with osteopenia. All bone density values are in grams per centimeter squared. At this facility, the least significant change in BMD with 95% confidence is 0.022 at the lumbar spine, 0.027 at the hip, and 0.023 at the distal 1/3 radius. Electronically signed by: Boy Gold MD 06/27/2024 02:07 PM [facility]
== END 2024-06-26 08:05 | disposition home or self-care (01) ==
LOC: HO.MAMMO 08:04
PROVIDERS: PCP Internal Medicine; Visit Provider Internal Medicine
DX: Z13.820 Encounter for screening for osteoporosis (principal); Z78.0 Asymptomatic menopausal state
CPT/HCPCS: 77080

== ENCOUNTER → 2024-06-26 08:45 | Outpatient (BNV) | payer MEDICARE, SELFPAY | PROVIDERS: PCP Internal Medicine; Visit Provider Radiology Diagnostic Radiology | DX: E28.39 Other primary ovarian failure (principal) | CPT/HCPCS: 77085 ==

== ENCOUNTER 2024-09-25 08:21 | Outpatient (REF) | payer MEDICARE, SELFPAY | END 2024-09-25 08:22 | disposition home or self-care (01) | LOC: HO.MAMMO 08:21 | PROVIDERS: PCP Internal Medicine; Visit Provider Internal Medicine | DX: Z12.31 Encounter for screening mammogram for malignant neoplasm of breast (principal) | CPT/HCPCS: 77063; 77067 ==

== ENCOUNTER → 2024-09-25 09:15 | Outpatient (BNV) | payer MEDICARE, SELFPAY | PROVIDERS: PCP Internal Medicine; Visit Provider Internal Medicine | DX: Z12.31 Encounter for screening mammogram for malignant neoplasm of breast (principal) | CPT/HCPCS: 77063; 77067 ==

== ENCOUNTER 2024-11-06 06:58 | Outpatient (REF) | payer MEDICARE, SELFPAY ==
--- OUTSIDE RECORDS SUMMARY | 2024-11-06 07:01 | XMS_ITS | Data Portability ---
Author Organization [facility] [employer], [address] Address [address] [place] [address] Care Team Providers Care Trench Digger Helper Name Role Phone MIKEL BARRIOS Primary Care Provider Assessment No assessment recorded. Plan of Treatment Reminders Order Date Submit Date Provider Last Modified By Organization Details Last Modified Time Details Appointments None recorded. Lab None recorded. Referral None recorded. Procedures None recorded. Surgeries None recorded. Imaging None recorded. Medication Orders benzonatate [address] [facility]armacy #[id number], [address] [place], [address], 3 16:21:21 prednisone 10 mg tablet [address] [facility]arm[facility] #2074, [address] [place], [address], 3 16:21:22 albuterol sulfate 2.5 mg/3 mL (0.083 %) solution for nebulizatio n 2022 023 [email or web address] Not available 3 15:54:41 ipratropium bromide 0.02 % solution for inhalation 2022 023 [email or web address] Not available 3 15:54:41 Patient TargetsNo targets recorded. Patient Instructions Encounter Date Encounter Id Patient Instructions Last Modified By Organization Details Last Modified Time 12/16/2022 [id number] cough: care instructions [email or web address] Not available 12/16/2022 15:40:47 You were prescribed [...] Do not take this medication with Ibuprofen [email or web address] Not available 12/16/2022 15:48:08 Reason for Referral None Reported. Problems No Known Problems Procedures Surgical History Date Name Laterality Status Provider Name and Address Organization Details Recorded Time Nebulizer Treatment completed YANDY CHAUHAN [facility] [place], [address], [place] - [facility] 12/16/2022 16:20:58 Imaging [...] Updated DateTime 3 157.48 cm 23.8 kg/m2 34580.0 1 g 97 [degF] 18 /min 98 % 98 % 81 /min 132 mm[Hg] 82 mm[Hg] YESSENIA PEREA [place] - [facility] 15:24:36 Social History Question Answer Notes LastModified by [employer] Details LastModified Time Tobacco Smoking Status Never Smoker YESSENIA PEREA ida, [place] - [facility] 12/16/2022 15:23:03 Have You Recently Traveled Abroad? No [email or web address] Information not available 12/16/2022 Sex: Unknown Functional Status Question Answer Note LastModified by Organizat ion Details LastModified Time Do you use any illicit or recreational drugs? No [email or web address] Information not available 12/16/2022 Do you or have you ever used any other forms of tobacco or nicotine? No Information not available 12/16/2022 What is your level of alcohol consumption? None [email or web address] Information not available 12/16/2022 Mental Status None recorded. Family History Relationship Description Onset Age of this Age Resolved Age Notes LastModified by Organization Details LastModified Time Father No current problems or disability [email or web address] Not available 12/16 15:22:49 Mother No current problems or disability [email or web address] Not available 12/16 15:22:49 Medical History No medical history recorded. Gynecological HistoryNo gynecological history recorded. Obstetrics History GPAL:G 0 P 0 0 0 0 Past Encounters Encounter ID Performer Location Encounter Start Date Encounter Closed Date Diagnosis/Indication Diagnosis SNOMED-CT Code Diagnosis ICD10 Code Diagnosis Note [id number] [facility] [address] [facility] [address] [place] [address] 11/28/2021 09:41:55 11/28/2021 13:44:50 [id number] YANDY CHAUHAN [address] [facility] [address] [place] [address] 12/16/2022 12:07:28 12/16/2022 16:23:31 Cough 79905058 R05.9 Strider resolved after nebulizer. Laryngotracheitis 960433 01 J04.2 You are being treated for a cough that is most like related to a viral infection. Currently your exam does not suggest anything worrisome like pneumonia or a bacterial infection. The following are my recommenda tions to help you with your symptoms and recovery.1 . Take Ibuprofen or Tylenol if you do not have any allergies to these medication s. If you take a blood thinner you should not take NSAIDS like Ibuprofen. These medication will help with the inflammati on in your respirator y tract which should help the cough.2. Do not take any decongesta nts at this time because this will dry out that tract too much. If you have a lot of nasal congestion you can try nasal decongesta nts, but I would not take them more than 5 days.3. Use a humidifier or add a cup of water by your bed. Sometimes if our sleeping environmen t is too dry this can lead to cough4. Salt Water Gargles5. Saline nasal spray is helpful. I would be seen again if you develop any of the following. 1. Cough last longer than 3 weeks - and has not worsened2. You develop a thick productive cough3. Develop shortness of breath or wheezing4. Develop achy feel or discomfort in a specific chest location5. Fever > 100.5 I would go immediatel y to the Emergency Room if you develop:1. Chest Pain2. Severe Shortness of breath3. Coughing up Blood. Most coughs will resolve on their own without any interventi on in 3 weeks. If they last longer we need to evaluate and rule out some other condition like Acid Reflux, or lung pathology. Thank you for using [employer] today - please don't hesitate to contact up or return to see if you have any questions or concerns. Health Concerns Section Related Observation LastModified by Organization Detai ls LastModified Time None Recorded Concern Status LastModified by Organization Details LastModified Time None Recorded Advance Directives Directive None Recorded Payers Insurance Date Sequence Insurance Name Policy Number Policy Strauss Covered Member ID Strauss Member ID Guarantor Name 12/19/2022 1 [facility] [id number] Christi Ahn [id number] Christi Ahn Notes Date Note Type Note [...] sore throat. No ear pain. YANDY CHAUHAN [address] [place] [address] [place], [address], [place] - [facility] 12/16/2022 16:21:55 OBGyn Episode No OBEpisode recorded.
[2024-11-06 08:12] LABS: Alanine Aminotransferase 23 U/L (0-31); Albumin Level 4.3 g/dL (3.5-5.0); Alkaline Phosphatase 79 U/L (39-117); Anion Gap 8 (12-20); Aspartate Amino Transferase 25 U/L (5-31); Bilirubin Total 1.4 mg/dL (0.0-1.0); Blood Urea Nitrogen 19 mg/dL (9-16); Calcium 9.3 mg/dL (8.4-10.2); Carbon Dioxide 30 mmol/L (22-29); Chloride 106 mmol/L (96-108); Cholesterol 187 mg/dL (<200); Estimated Glomerular Filt Rate > 60; Glucose Fasting 92 mg/dL (60-99); HDL Cholesterol 54 mg/dL (>40); LDL Cholesterol Calculated 114 mg/dL (<100); Potassium 3.9 mmol/L (3.3-5.1); Sodium 140 mmol/L (135-145); Total Protein 7.3 g/dL (6.5-8.0); Triglycerides 96 mg/dL (<150)
[2024-11-06 08:28] LABS: Vitamin D 25-OH Total 43.9 ng/mL (>30)
== END 2024-11-06 06:59 | disposition home or self-care (01) ==
LOC: HO.LAB 06:58
PROVIDERS: PCP Internal Medicine; Visit Provider Internal Medicine
DX: E55.9 Vitamin D deficiency, unspecified (principal); E78.5 Hyperlipidemia, unspecified; R10.32 Left lower quadrant pain
CPT/HCPCS: 36415; 80053; 80061; 82306

== ENCOUNTER 2024-11-12 07:37 | Outpatient (AMB) | payer MEDICARE, SELFPAY ==
--- OUTSIDE RECORDS SUMMARY | 2024-11-12 07:40 | XMS_ITS | Data Portability ---
Author Organization [employer], [address] Address [address] [place] [address] Care Team Providers Care Flap Maker Name Role Phone MIKEL BARRIOS Primary Care Provider Assessment No assessment recorded. Plan of Treatment Reminders Order Date Submit Date Provider Last Modified By Organization Details Last Modified Time Details Appointments None recorded. Lab None recorded. Referral None recorded. Procedures None recorded. Surgeries None recorded. Imaging None recorded. Medication Orders benzonatate 100 mg capsule 2022 023 [facility]/Pharmacy #[id number], [address] [place], [address], 3 16:21:21 prednisone 10 mg tablet 2022 023 [facility]Pharmacy #2078, [address] [place], [address], 3 16:21:22 albuterol sulfate 2.5 mg/3 mL (0.083 %) solution for nebulizatio n 2022 023 [email or web address] Not available 3 15:54:41 ipratropium bromide 0.02 % solution for inhalation 2022 023 [email or web address] Not available 3 15:54:41 Patient TargetsNo targets recorded. Patient Instructions Encounter Date Encounter Id Patient Instructions Last Modified By Organization Details Last Modified Time 12/16/2022 [id number] cough: care instructions Not available 12/16/2022 15:40:47 [...] Do not take this medication with Ibuprofen [email or web address] Not available 12/16/2022 15:48:08 Reason for Referral None Reported. Problems No Known Problems Procedures Surgical History Date Name Laterality Status Provider Name and Address Organization Details Recorded Time 3 Nebulizer Treatment completed [facility] [place], [address], [place] - [facility] 12/16/2022 16:20:58 Imaging [...] blood by Pulse oximetry Heart rate Systolic And Diastolic Provider Name and Address Organization Details Last Updated DateTime 3 157.48 cm 23.8 kg/m2 16566.0 1 g 97 [degF] 18 /min 98 % 98 % 81 /min 132/82 mm[Hg] YESSENIA PEREA [place] - [facility] 15:24:36 Social History Question Answer Notes LastModified by Organizat [employer] Details LastModified Time Tobacco Smoking Status Never Smoker YESSENIA PEREA ida, [place] - [facility] 12/16/2022 15:23:03 Have You Recently Traveled Abroad? No [email or web address] Information not available 12/16/2022 Sex: Unknown Functional Status Question Answer Note LastModified by Organizat ion Details LastModified Time Do you use any illicit or recreational drugs? No [email or web address] Information not available 12/16/2022 Do you or have you ever used any other forms of tobacco or nicotine? No [email or web address] Information not available 12/16/2022 What is your level of alcohol consumption? None [email or web address] Information not available 12/16/2022 Mental Status None recorded. Family History Relationship Description Onset Age of this Age Resolved Age Notes LastModified by Organization Details LastModified Time Father No current problems or disability [email or web address] Not available 12/16 15:22:49 Mother No current problems or disability [email or web address] Not available 12/16 15:22:49 Medical History No medical history recorded. Gynecological HistoryNo gynecological history recorded. Obstetrics History GPAL:G 0 P 0 0 0 0 Past Encounters Encounter ID Performer Location Encounter Start Date Encounter Closed Date Diagnosis/Indication Diagnosis SNOMED-CT Code Diagnosis ICD10 Code Diagnosis Note [id number] [facility] [address] [facility] [address] [place] [address] 11/28/2021 09:41:55 11/28/2021 13:44:50 [id number] YANDY CHAUHAN [address] [address] [place] [address] 12/16/2022 12:07:28 12/16/2022 16:23:31 Cough 22270718 R05.9 Strider resolved after nebulizer. Laryngotracheitis 294959 01 J04.2 You are being treated for [...] or lung pathology. Thank you for using [employer] today - please don't hesitate to contact up or return to see if you have any questions or concerns. Health Concerns Section Related Observation LastModified by Organization Detai ls LastModified Time None Recorded Concern Status LastModified by Organization Details LastModified Time None Recorded Advance Directives Directive None Recorded Payers Insurance Date Sequence Insurance Name Policy Number Policy Strauss Covered Member ID Strasus Member ID Guarantor Name 12/19/2022 1 [facility] [id number] Christi Ahn [id number] Christi Ahn Notes Date Note Type Note [...] sore throat. No ear pain. YANDY CHAUHAN [facility] [place], [address], [place] - [facility] 12/16/2022 16:21:55 OBGyn Episode No OBEpisode recorded.
--- NOTE | 2024-11-12 07:48 | A.OFFPC_ITS ---
Vital Signs 11/12/24 07:50 Height 5 ft 1 in Weight 123 lb BMI 23.2 BP 122/78 Blood Pressure Location Lt brachial Position Sitting Intake Visit Reasons: bp Intake Note: Patient here for a follow up BP, c/o headaches V/Stol Landing Signal Officer Required: No Accompanied by: Self / Same As Patient Allergies No Known Allergies Allergy (Verified 11/12/24 08:12) Medication List - Last Reconciled 11/12/24 by Debra Hart MD atorvastatin 10 mg PO BEDTIME 90 days calcium carbonate (Oyster Shell Calcium) 500 mg PO DAILY 90 days cholecalciferol (vitamin D3) 50 mcg PO DAILY loratadine (Claritin) 10 mg PO DAILY Tobacco use date assessed: 11/12/24 Fall risk assessment: No Falls in past year Last assessed Fall Risk: 11/12/24 Dental Screening Dental Screen Date: 11/12/24 Did you have a dental visit in the last 12 months?: Yes Did you have a dental problem in the last 6 months where you did not have access to dental care?: No Was dental information given to patient?: Patient has dentist HPI HPI Comments History of Present Illness Details The patient is a 69-year-old female presenting with chronic headaches. She describes having headaches daily, affecting both sides and occasionally her entire head. The headaches have been persistent for 4 to 6 months, with no known visual disturbances, photophobia, or phonophobia during their occurrence. Initial suspicion of the headaches being related to her eyeglasses was ruled out as they persisted despite increasing the use of her glasses. She finds relief using Tylenol but is averse to daily consumption. Her past medical history includes osteopenia, managed with calcium and vitamin D following a decreased bone mineral density noted in s scan. She is also being treated for allergic rhinitis with loratadine. Last year, she underwent a colonoscopy revealing a tubular adenoma, but there was no subsequent follow-up plan communicated for repeat evaluation. [facility] Medical History (Updated 11/12/24 @ 08:28 by Debra Hart MD) Osteopenia Left lower quadrant pain High cholesterol Surgical History History of colonoscopy History of tubal ligation Family History Father Cancer Mother Cancer Social History Housing: House Alcohol intake: never Patient Tobacco Use Status: Never used Tobacco e-Cigarette/Vaping Use: Never Used Second Hand Smoke Exposure: No service: No Current occupational status: retired Current occupational exposures/hazards: No Cognitive needs: No Hearing needs: No Vision needs: Yes Questionnaire PHQ-9 Over the last 2 weeks, how often have you been bothered by any of the following problems? 1. Little interest or pleasure in doing things: not at all 2. Feeling down, depressed, or hopeless: not at all 3. Trouble falling or staying asleep, or sleeping too much: not at all 4. Feeling tired or having little energy: not at all 5. Poor appetite or overeating: not at all 6. Feeling bad about yourself - or that you are a failure or have let yourself or your family down: not at all 7. Trouble concentrating on things, such as reading the newspaper or watching television: not at all 8. Moving or speaking so slowly that other people could have noticed. Or the opposite - being so fidgety or restless that you have been moving around a lot more than usual: not at all 9. Thoughts that you would be better off or of hurting yourself in some way: not at all Total score: 0 Depression Screening Interpretation: Negative Depression Screening Done: Yes 07518 - PHQ-9 Billing: Yes Source: Developed by Drs. Boy Seals, Jenise Rolon, Tristen Wheeler and colleagues, with an educational tayler from [employer]. Thrive Questionnaire Date Thrive assessed: 11/12/24 I am a: Patient What is your living situation today?: I have a steady place to live Within the past 12 months, did the food you bought not last and you didn't have the money to get more?: I choose not to answer this question Within the past 12 months, did you worry whether your food would run out before you got money to buy more?: I choose not to answer this question Do you have trouble paying for medicines?: I choose not to answer this question Do you have trouble getting transportation to medical appointments?: I choose not to answer this question Do you have trouble paying your heating and electricity bill?: I choose not to answer this question Do you have trouble taking care of your child, family member or friend?: I choose not to answer this question Do you have trouble with day-to-day activities such as bathing, preparing meals, shopping, managing finances, etc.?: I choose not to answer this question Are you currently unemployed and looking for a job?: I choose not to answer this question Are you interested in more education?: I choose not to answer this question Please select the resources that you would like help with: None Currently or been in a relationship where the following occur: I choose not to answer THRIVE Score: 0 AUDIT C Alcohol Use Questionnaire (AUDIT-C) 1. How often do you have a drink containing alcohol?: Never Total Score: 0 Score Reviewed/Action Taken: No JOAQUIN-7 AMB Questionnaire JOAQUIN-7 Date JOAQUIN - 7 assessed: 11/12/24 Feeling nervous, anxious, or on edge: 0 = Not at all Not being able to stop or control worryin = Not at all Worrying too much about different things: 0 = Not at all Trouble relaxin = Not at all Being so restless that it is hard to sit still: 0 = Not at all Becoming easily annoyed or irritable: 0 = Not at all Feeling afraid as if something awful might happen: 0 = Not at all Total JOAQUIN-7 score (0-4 normal; 5-9 mild; 10-14 moderate; 15-21 severe): 0 Source: Developed by Drs. Boy Seals, Jenise Rolon, Tristen Wheeler and colleagues, with an educational tayler from [employer]. JOAQUIN-7 Assessment Billing JOAQUIN-7 Assessment Tool: JOAQUIN-7 Assessment 62674 Review of Systems Const All systems reviewed & are unremarkable except as noted in HPI and below Reports headache(s) ENT Reports headache(s) Card Denies chest pain at rest, Denies chest pain with activity, Denies edema, Denies irregular heart rhythm, Denies claudication, Denies dyspnea, Denies dyspnea on exertion, Denies orthopnea, Denies paroxysmal nocturnal dyspnea and Denies slow heart rate Resp Denies cough, Denies dyspnea and Denies dyspnea on exertion GI Denies abdominal pain, Denies change in bowel habits, Denies excessive flatus, Denies nausea and Denies vomiting Denies urinary incontinence, Denies urinary hesitancy and Denies urinary urgency Musc Denies abnormal gait, Denies atrophy, Denies deformity and Denies limited range of motion Skin/Breast Denies bleeding lesions, Denies changing lesions and Denies rash Neuro Denies abnormal gait, Denies behavioral changes, Reports headache(s) and Denies lack of coordination Psych Denies behavioral changes Physical exam (Primary Care) Vital Signs: Last Vital Signs BP 122/78 11/12/24 07:50 BMI result Body Mass Index 23.2 Tobacco/Smoking Status: Tobacco use Status Tobacco use date assessed 11/12/24 11/12/24 07:54 Patient Tobacco Use Status Never used Tobacco 11/12/24 07:54 Tobacco use type 05/03/23 09:52 e-Cigarette/Vaping Use Never Used 11/12/24 07:54 PHQ-9: PHQ-9 Score PHQ-9: Total score 0 11/12/24 07:54 Depression Screening Interpretation: Negative Thrive Assessment: Date of Thrive Assessment Date Thrive assessed 11/12/24 11/12/24 07:54 Currently or been in a relationship where the following occur: I choose not to answer HENMT Head: Yes normal to inspection, Yes normocephalic and Yes atraumatic Ears: external ears normal Eyes General: appearance normal, both eyes and all related structures Eyelids: Yes eyelids normal Conjunctivae: conjunctivae normal Neck Neck: Yes normal visual inspection and Yes supple Resp Effort & Inspection: normal respiratory effort Auscultation: clear to auscultation bilaterally Cardio Jugular venous distension: no JVD Rate: regular rate Rhythm: regular rhythm Heart sounds: S1 normal heart sound present and S2 normal heart sound present GI Inspection: Yes normal to inspection Palpation (GI): Soft to palpation and nontender Auscultation: normal bowel sounds Skin General skin exam: no rashes or lesions noted Neuro General: no focal motor deficits Extrem General: Yes full ROM Psych Appearance: grossly normal Coding Level of Care Code Est Pt Level 4 (71206) Complex EM visit Add On G2211 Diagnoses New persistent daily headache G44.52 Osteopenia M85.80 Low vitamin D level R79.89 Dyslipidemia E78.5 Seasonal allergic rhinitis due to pollen J30.1 Additional Codes PHQ-9 - 73901 - PHQ-9 Billing: Yes ([id number]) JOAQUIN-7 Assessment Billing - JOAQUIN-7 Assessment Tool: JOAQUIN-7 Assessment 16928 ([id number]) Time Spent (min) 21 Assessment & Plan Assessment & Plan (1) New persistent daily headache: Code(s): G44.52 - New daily persistent headache (NDPH) Category: Medical (2) Osteopenia: Code(s): M85.80 - Other specified disorders of bone density and structure, unspecified site Category: Medical (3) Low vitamin D level: Code(s): R79.89 - Other specified abnormal findings of blood chemistry Category: Medical (4) Dyslipidemia: Code(s): E78.5 - Hyperlipidemia, unspecified Category: Medical (5) Seasonal allergic rhinitis due to pollen: Code(s): J30.1 - Allergic rhinitis due to pollen Category: Medical Plan Her allergic rhinitis is currently managed with loratadine. Continue statins for dyslipidemia. Repeat DEXA scan 2026 and continue calcium with vitamin-D for osteopenia. MRI of the brain order for headaches and she will start magnesium oxide at bedtime. She was also referred to Neurology. Patient was informed and verbally consented to the use of an ambient scribe for clinic note documentation during this visit. Orders: Orders MR head/brain wo con Today G44.52 - New daily persistent headache (NDPH) Referrals Neurology Referral G44.52 - New daily persistent headache (NDPH) Medications: New magnesium oxide 400 mg PO BEDTIME 90 days 90 tabs 0RF
[2024-11-12 07:50] VITALS: BP 122/78; BMI 23.2
== END 2024-11-12 08:23 | disposition home or self-care (01) ==
LOC: HO.HMCH 07:38
PROVIDERS: PCP Internal Medicine; Visit Provider Internal Medicine
DX: G44.52 New daily persistent headache (NDPH) (principal); M85.80 Other specified disorders of bone density and structure, unspecified site; R79.89 Other specified abnormal findings of blood chemistry; E78.5 Hyperlipidemia, unspecified; J30.1 Allergic rhinitis due to pollen

== ENCOUNTER → 2024-11-12 07:37 | Outpatient (BNVA) | payer MEDICARE, SELFPAY | PROVIDERS: PCP Internal Medicine; Visit Provider Internal Medicine | DX: G44.52 New daily persistent headache (NDPH) (principal); M85.80 Other specified disorders of bone density and structure, unspecified site; R79.89 Other specified abnormal findings of blood chemistry; E78.5 Hyperlipidemia, unspecified; J30.1 Allergic rhinitis due to pollen | CPT/HCPCS: 96127; 99212 ==

== ENCOUNTER 2024-11-19 07:17 | Outpatient (REF) | payer MEDICARE, SELFPAY ==
--- NOTE | ~2024-11-19 | MR_ITS ---
EXAMINATION: MR BRAIN WITHOUT CONTRAST CLINICAL INFORMATION: New daily persistent headache COMPARISON: None available. TECHNIQUE: MRI of the brain was obtained using routine sequences without contrast. FINDINGS: There is no restricted diffusion visualized to suspect any acute ischemic changes. There are scattered T2 FLAIR signal changes in subcortical white matter of both cerebral hemispheres but no mass effect or edema seen. These are nonspecific. Otherwise the loya to white matter differentiation is maintained normal. No magnetic susceptibility artifact to suspect acute or chronic hemorrhagic products. The lateral ventricles are symmetrical in size and configuration but mildly enlarged. Normal flow-void signal seen in major cerebral vasculature. There is no extra-axial fluid collection or mass. The bone marrow signal of the calvarium is normal. Paranasal sinuses and mastoid air cells are well-aerated. MR/MR head/brain wo con IMPRESSION: No acute intracranial bleed, infarct, mass or midline shift. Nonspecific small T2 FLAIR foci in the subcortical white matter of both cerebral hemispheres without mass effect. Electronically signed by: Sandor Calderon MD 11/19/2024 08:40 AM EDT
--- OUTSIDE RECORDS SUMMARY | 2024-11-19 07:20 | XMS_ITS | Data Portability ---
Author Organization [facility] [employer], [address] Address [address] [place] [address] Care Team Providers Care Manager Investment Name Role Phone MIKEL BARRIOS Primary Care Provider Assessment No assessment recorded. Plan of Treatment Reminders Order Date Submit Date Provider Last Modified By Organization Details Last Modified Time Details Appointments None recorded. Lab None recorded. Referral None recorded. Procedures None recorded. Surgeries None recorded. Imaging None recorded. Medication Orders benzonatate 100 mg capsule 2022 023 [facility]/Pharmacy #[id number], [address] [place], [address], 3 16:21:21 prednisone 10 mg tablet 2022 023 [facility]/Pharmacy #[id number], [address] [place], [address], 3 16:21:22 albuterol sulfate 2.5 mg/3 mL (0.083 %) solution for nebulizatio n 2022 023 [email or web address] Not available 3 15:54:41 ipratropium bromide 0.02 % solution for inhalation 2022 023 [email or web address] Not available 3 15:54:41 Patient TargetsNo targets recorded. Patient Instructions Encounter Date Encounter Id Patient Instructions Last Modified By Organization Details Last Modified Time 12/16/2022 [id number] cough: care instructions [email or web address] Not available 12/16/2022 15:40:47 You were prescribed [...] Do not take this medication with Ibuprofen [email or web address] Not available 12/16/2022 15:48:08 Reason for Referral None Reported. Problems No Known Problems Procedures Surgical History Date Name Laterality Status Provider Name and Address Organization Details Recorded Time Nebulizer Treatment completed YANDY CHAUHAN [facility] [place], [address], [place] - [facility] 12/16/2022 16:20:58 Imaging [...] Updated DateTime 3 157.48 cm 23.8 kg/m2 35072.0 1 g 97 [degF] 18 /min 98 % 98 % 81 /min 132 mm[Hg] 82 mm[Hg] YESSENIA PEREA [place] - [facility] 15:24:36 Social History Question Answer Notes LastModified by [facility] Details LastModified Time Tobacco Smoking Status Never Smoker YESSENIA PEREA ida, [place] - [facility] 12/16/2022 15:23:03 Have You Recently Traveled Abroad? No Information not available 12/16/2022 Sex: Unknown Functional Status Question Answer Note LastModified by Organizat ion Details LastModified Time Do you use any illicit or recreational drugs? No [email or web address] Information not available 12/16/2022 Do you or have you ever used any other forms of tobacco or nicotine? No [email or web address] Information not available 12/16/2022 What is your level of alcohol consumption? None Information not available 12/16/2022 Mental Status None recorded. Family History Relationship Description Onset Age of this Age Resolved Age Notes LastModified by Organization Details LastModified Time Father No current problems or disability [email or web address] Not available 12/16 15:22:49 Mother No current problems or disability [email or web address] Not available 12/16 15:22:49 Medical History No medical history recorded. Gynecological HistoryNo gynecological history recorded. Obstetrics History GPAL:G 0 P 0 0 0 0 Past Encounters Encounter ID Performer Location Encounter Start Date Encounter Closed Date Diagnosis/Indication Diagnosis SNOMED-CT Code Diagnosis ICD10 Code Diagnosis Note [id number] [facility] [address] [facility] [address] [place] [address] 11/28/2021 09:41:55 11/28/2021 13:44:50 [id number] YANDY CHAUHAN [address] [facility] [address] [place] [address] 12/16/2022 12:07:28 12/16/2022 16:23:31 Cough 61494707 R05.9 Strider resolved after nebulizer. Laryngotracheitis 368436 01 J04.2 You are being treated for [...] or lung pathology. Thank you for using [employer] today - please don't hesitate to contact [...] Strauss Member ID Guarantor Name 12/19/2022 1 [facility] [id number] Christi Ahn [id number] Christi Ahn Notes Date Note Type Note [...] sore throat. No ear pain. YANDY CHAUHAN [address] [place] [address] [place], [address], [place] - [facility] 12/16/2022 16:21:55 OBGyn Episode No OBEpisode recorded.
== END 2024-11-19 07:18 | disposition home or self-care (01) ==
LOC: HO.MRI 07:17
PROVIDERS: Visit Provider Internal Medicine
DX: G44.52 New daily persistent headache (NDPH) (principal)
CPT/HCPCS: 70551

== ENCOUNTER → 2024-11-19 07:20 | Outpatient (BNV) | payer MEDICARE, SELFPAY | PROVIDERS: Visit Provider Radiology Diagnostic Radiology | DX: R90.82 White matter disease, unspecified (principal) | CPT/HCPCS: 70551 ==

== ENCOUNTER 2024-12-05 15:05 | Outpatient (REF) | payer MEDICARE, SELFPAY ==
[2024-12-05 15:16] LABS: MANUAL DIFF FLAG NO
--- OUTSIDE RECORDS SUMMARY | 2024-12-05 16:27 | XMS_ITS | Data Portability ---
Author Organization [facility] [employer], [address] Address [address] [place] [address] Care Team Providers Care Pasta Press Operator Name Role Phone MIKEL BARRIOS Primary Care Provider [phone] Assessment No assessment recorded. Plan of Treatment Reminders Order Date Submit Date Provider Last Modified By Organization Details Last Modified Time Details Appointments None recorded. Lab None recorded. Referral None recorded. Procedures None recorded. Surgeries None recorded. Imaging None recorded. Medication Orders benzonatate 100 mg capsule 2022 023 [facility]armacy #[id number], [address] [place], [address], 3 16:21:21 prednisone 10 mg tablet 2022 023 [facility]/Pharmacy #2071, [address] [place], [address], 3 16:21:22 albuterol sulfate 2.5 mg/3 mL (0.083 %) solution for nebulizatio n 2022 023 [email or web address] Not available 3 15:54:41 ipratropium bromide 0.02 % solution for inhalation 2022 023 [email or web address] Not available 3 15:54:41 Patient TargetsNo targets recorded. Patient Instructions Encounter Date Encounter Id Patient Instructions Last Modified By Organization Details Last Modified Time 12/16/2022 [id number] cough: care instructions [email or web address] Not available 12/16/2022 15:40:47 You were prescribed [...] Do not take this medication with Ibuprofen [email or web address] Not available 12/16/2022 15:48:08 Reason for Referral None Reported. Problems No Known Problems Procedures Surgical History Date Name Laterality Status Provider Name and Address Organization Details Recorded Time Nebulizer Treatment completed YANDY CHAUHAN [facility] [place], [address], [place] - [facility] 12/16/2022 16:20:58 Imaging [...] Updated DateTime 3 157.48 cm 23.8 kg/m2 28368.0 1 g 97 [degF] 18 /min 98 % 98 % 81 /min 132 mm[Hg] 82 mm[Hg] YESSENIA PEREA [place] - [facility] 15:24:36 Social History Question Answer Notes LastModified by [employer] Details LastModified Time Tobacco Smoking Status Never Smoker YESSENIA PEREA ida, [place] - [facility] 12/16/2022 15:23:03 Have You Recently Traveled Abroad? No [email or web address] Information not available 12/16/2022 Sex: Unknown Functional Status Question Answer Note LastModified by Organizat ion Details LastModified Time Do you use any illicit or recreational drugs? No [email or web address] Information not available 12/16/2022 Do you or have you ever used any other forms of tobacco or nicotine? No Information not available 12/16/2022 What is your level of alcohol consumption? None [email or web address] Information not available 12/16/2022 Mental Status None recorded. Family History Relationship Description Onset Age of this Age Resolved Age Notes LastModified by Organization Details LastModified Time Father No current problems or disability [email or web address] Not available 12/16 15:22:49 Mother No current problems or disability [email or web address] Not available 12/16 15:22:49 Medical History No medical history recorded. Gynecological HistoryNo gynecological history recorded. Obstetrics History GPAL:G 0 P 0 0 0 0 Past Encounters Encounter ID Performer Location Encounter Start Date Encounter Closed Date Diagnosis/Indication Diagnosis SNOMED-CT Code Diagnosis ICD10 Code Diagnosis Note [id number] [facility] [address] [facility] [address] [place] [address] 11/28/2021 09:41:55 11/28/2021 13:44:50 [id number] YANDY CHAUHAN [address] [facility] [address] [place] [address] 12/16/2022 12:07:28 12/16/2022 16:23:31 Cough 41409804 R05.9 Strider resolved after nebulizer. Laryngotracheitis 370248 01 J04.2 You are being treated for [...] or lung pathology. Thank you for using [employer] today - please don't hesitate to contact [...] Strauss Member ID Guarantor Name 12/19/2022 1 [facility] [id number] Christi Ahn [id number] Christi Ahn Notes Date Note Type Note [...] sore throat. No ear pain. YANDY CHAUHAN [address] [place] [address] [place], [address], [place] - [facility] 12/16/2022 16:21:55 OBGyn Episode No OBEpisode recorded.
[2024-12-05 16:39] LABS: Basophils Absolute Auto 0.1 X10*3/uL (0.0-0.2); Eosinophils Absolute Auto 0.1 X10*3/uL (0.0-0.4); Eosinophils Percent Auto 1.7 % (0-4); Hemoglobin 14.1 g/dl (12.0-16.0); Imm Gran Abs Auto 0.01 X10*3/uL (0.00-0.03); Imm Gran Pct Auto 0.2 % (0.0-0.4); Lymphocytes Absolute Auto 2.2 X10*3/uL (1.2-4.9); Lymphocytes Percent Auto 37.3 % (20-40); Mean Corpuscular Volume 87.3 fL (80.0-98.0); Mean Platelet Volume 9.6 fL (9.4-12.3); Monocytes Absolute Auto 0.5 X10*3/uL (0.1-1.2); Monocytes Percent Auto 7.8 % (2-11); Neutrophils Absolute Auto 3.1 x10*3/uL (2.0-8.3); Platelet Count 266 X10*3/uL (160-400); Red Blood Count 5.04 X10*6/uL (4.20-5.50); Red Cell Distribution Width 12.6 % (11.0-16.0); White Blood Count 5.9 X10*3/uL (4.8-10.8)
[2024-12-05 17:51] LABS: Erythrocyte Sedimentation Rate 5 MM/HR (0-20)
== END 2024-12-05 15:06 | disposition home or self-care (01) ==
LOC: HO.LAB 15:05
PROVIDERS: PCP Internal Medicine; Visit Provider Psychiatry & Neurology Neurology
DX: G44.40 Drug-induced headache, not elsewhere classified, not intractable (principal)
CPT/HCPCS: 36415; 85025; 85652

== ENCOUNTER 2025-03-14 07:55 | Emergency (ER) | payer MEDICARE, SELFPAY ==
--- NOTE | ~2025-03-14 | XR_ITS ---
EXAMINATION: XR CHEST CLINICAL INFORMATION: cough x 10 yrs COMPARISON: None available. TECHNIQUE: PA and lateral views FINDINGS: Bilateral apical lung scarring. Pulmonary reticular pattern. No consolidation, pleural effusion or pneumothorax. Cardiomediastinal silhouette size is small. Multilevel spondylosis throughout the axial skeleton. XR/XR chest 2V IMPRESSION: Concerning chronic interstitial lung disease without gross acute airspace disease. Electronically signed by: Greyson Cramer MD 03/14/2025 08:45 AM EDT
[2025-03-14 08:05] VITALS: BP 163/85; PULSE 77; RESP 18; TEMP 36.7; O2SAT 97; BMI 22.3
--- NOTE | 2025-03-14 08:12 | ED.GENADULT ---
HPI - General Adult General Chief complaint: Upper Respiratory Symptoms Stated complaint: cough for 10 days Time Seen by Provider: 03/14/25 08:04 Source: patient, RN notes reviewed and old records reviewed Mode of arrival: ambulatory Limitations: no limitations History of Present Illness ED Provider: Baron HPI narrative: Patient is a 69-year-old female presenting to the emergency department with complaint of nonproductive cough for the past 10 days. Denies fevers. 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 Also notes that she typically gets these symptoms each fall. Denies chest pain or palpitations. Was given prescription for cough medicine from PCP but states it's not helping. MD complaint: cough Onset (ago): day(s) Related Data Home Medications ?Medication ?Instructions ?Recorded ?Confirmed loratadine 10 mg tablet (Claritin) 10 mg PO DAILY 04/26/22 11/12/24 Previous Rx's ?Medication ?Instructions ?Recorded atorvastatin 10 mg tablet 10 mg PO BEDTIME 90 days #90 tabs 10/26/24 calcium carbonate (Oyster Shell 500 mg PO DAILY 90 days #90 tabs 10/30/24 Calcium) amitriptyline 10 mg tablet 10 mg PO BEDTIME 90 days #90 tabs 12/31/24 cholecalciferol (vitamin D3) 50 50 mcg PO DAILY #90 tabs 01/15/25 mcg (2,000 unit) tablet magnesium oxide 400 mg (241.3 mg 400 mg PO BEDTIME 90 days #90 tabs 02/08/25 magnesium) tablet guaifenesin 600 mg tablet, 600 mg PO BID PRN cough 5 days #10 03/10/25 extended release 12 hr (Mucinex) tabs albuterol sulfate 90 mcg/actuation 2 puff inhalation Q4-6H PRN 03/14/25 aerosol inhaler (Ventolin HFA) shortness of breath or wheezing #6.7 grams azithromycin 250 mg tablet See Rx Instructions PO .COMPLEX #6 03/14/25 tabs prednisone 20 mg tablet 20 mg PO DAILY #5 tabs 03/14/25 Allergies Allergy/AdvReac Type Severity Reaction Status Date / Time No Known Allergies Allergy Verified 03/14/25 08:06 Review of Systems Review of Systems: As per HPI Yes all other systems are reviewed and are negative Constitutional: Constitutional: Reports as per HPI [facility] Past Medical History Medical History (Updated 03/14/25 @ 09:52 by Carmen Draper NP) Chronic headaches Osteopenia Left lower quadrant pain High cholesterol Surgical History History of colonoscopy History of tubal ligation Family History Family History Father Cancer Mother Cancer Social History Social History Housing: House Alcohol intake: never Patient Tobacco Use Status: Never used Tobacco e-Cigarette/Vaping Use: Never Used Second Hand Smoke Exposure: No Advance Directives: No Advance Directives Information Provided: Yes service: No Current occupational status: retired Current occupational exposures/hazards: No Cognitive needs: No Hearing needs: No Vision needs: Yes Physical Exam ED Vital Signs: Vital Signs - 24 hr 03/14/25 08:05 Temperature 98.1 F Pulse Rate 77 Respiratory Rate 18 Blood Pressure 163/85 H Pulse Oximetry 97 Oxygen Delivery Method Room Air BMI result Body Mass Index 22.3 Vital signs have been reviewed and appear to be correct. Blood pressure normal. Heart rate normal. Respiratory rate normal. Temperature normal. Oxygen saturation normal. Const General: cooperative, healthy appearing and no acute distress Orientation/consciousness: oriented to person, oriented to place, oriented to time and patient oriented x3 Limitations: no limitations HENMT Head: Yes normocephalic and Yes atraumatic Ears: external ears normal General nose exam: Normal external nose present Face and sinus: Yes face symmetric Mouth: oropharynx normal and moist mucous membranes Throat: Yes uvula midline Eyes Pupils: Equal, round and reactive pupils present Neck Neck: Yes normal visual inspection and Yes supple Resp Effort & Inspection: normal respiratory effort and able to speak in complete sentences Auscultation: clear to auscultation bilaterally and wheezes scattered wheezes Cardio Rate: regular rate Rhythm: regular rhythm Heart sounds: S1 normal heart sound present and S2 normal heart sound present GI Palpation (GI): Soft to palpation and nontender Auscultation: normoactive bowel sounds General: Yes no CVA tenderness Back/Spine/Pelvis Back: no CVA tenderness Skin General skin exam: elasticity normal and turgor normal Neuro General: oriented to person, oriented to place, oriented to time, patient oriented x3, moves all extremities, no focal motor deficits and CN's II-XI intact bilaterally Cranial nerves: Yes Equal, round and reactive pupils present Cognition (Neuro): normal cognition Extrem General: Yes full ROM, Yes no pedal edema and Yes no calf tenderness Psych Mental Status: mental status grossly normal Affect: normal affect Thought process: Normal thought process present Medical Decision Making Medical Decision Making [facility] Narrative: Patient is a 69-year-old female presenting to the emergency department with complaint of nonproductive cough for the past 10 days. On exam patient is awake, A+Ox3, VS WNL, afebrile, normal neurological exam without focal deficits, physical exam findings as above. Given reported symptoms and physical exam findings, initial differential includes but is not limited to viral illness, covid, flu, bronchitis, pneumonia. Viral serology negative. X-ray chest notable for no evidence of pneumonia but notable for chronic interstitial lung disease. My interpretation is in agreement with the radiologist's interpretation. Results discussed with patient and all questions answered. Will treat for bronchitis given ongoing length of symptoms. Advised follow up with PCP regarding x-ray results. Return precautions discussed. Patient verbalized understanding of and agreement with plan. Differential Diagnosis Differential Diagnoses: The differential diagnosis associated with the presentation includes As per [facility] Admission/Observation Consideration of admission/observation: Escalation of care including admission/observation considered Patient would have been admitted to the hospital and transferred to appropriate facility had their clinical presentation warranted hospital admission. Lab Data [facility] Lab Attestation statement: I reviewed the patient's lab results. as per [facility] 03/14/25 08:28 03/14/25 08:28 Labs: Lab Results 03/14/25 03/14/25 Range/Units 08:23 08:28 WBC 5.2 (4.8-10.8) X10*3/uL RBC 5.37 (4.20-5.50) X10*6/uL Hgb 15.2 (12.0-16.0) g/dl Hct 45.2 (37.0-47.0) % MCV 84.2 (80.0-98.0) fL MCH 28.3 (27.0-33.0) pg MCHC 33.6 (31.0-35.0) g/dl RDW 12.3 (11.0-16.0) % Plt Count 244 (160-400) X10*3/uL MPV 8.9 L (9.4-12.3) fL Immature Gran % (Auto) 0.2 (0.0-0.4) % Neut % (Auto) 42.3 L (45-73) % Lymph % (Auto) 44.4 H (20-40) % Barron % (Auto) 5.6 (2-11) % Eos % (Auto) 6.0 H (0-4) % Baso % (Auto) 1.5 (0-2) % Lymph # (Auto) 2.3 (1.2-4.9) X10*3/uL Barron # (Auto) 0.3 (0.1-1.2) X10*3/uL Eos # (Auto) 0.3 (0.0-0.4) X10*3/uL Baso # (Auto) 0.1 (0.0-0.2) X10*3/uL Abs Immat Gran (auto) 0.01 (0.00-0.03) X10*3/uL Absolute Neuts (auto) 2.2 (2.0-8.3) x10*3/uL Absolute Nucleated RBC 0.000 (0.0-0.012) X10*3/uL Nucleated RBC % (auto) 0.0 (0.0-0.2) /100WBC Sodium 142 (135-145) mmol/L Potassium 3.9 (3.3-5.1) mmol/L Chloride 106 (96-108) mmol/L Carbon Dioxide 27 (22-29) mmol/L Anion Gap 13 (12-20) BUN 14 (9-16) mg/dL Creatinine 0.69 (0.5-1.4) mg/dL Estim Creat Clear Calc 60.9 Estimated GFR > 60 Random Glucose 108 (60-115) mg/dL Calcium 9.8 (8.4-10.2) mg/dL Total Bilirubin 0.8 (0.0-1.0) mg/dL AST 33 H (5-31) U/L ALT 44 H (0-31) U/L Alkaline Phosphatase 92 (39-117) U/L NT-Pro-B Natriuret Pep 92.6 (<300) pg/mL Total Protein 7.6 (6.5-8.0) g/dL Albumin 4.3 (3.5-5.0) g/dL COVID-19 (SHABBIR) Negative (Negative) COVID-19 Clin Com See Note Influenza Type A (PATITO) Negative (Negative) Influenza Type B (PATITO) Negative (Negative) Influenza A & B Note See Note Independent Interpretation I performed an independent interpretation of an: Plain X-Ray Interpretation: No evidence of pneumonia on chest xray. Radiology Impression Discussion of test interpretation with radiology: I have reviewed the radiologist's reading. Radiologist Impression: XR/XR chest 2V IMPRESSION: Concerning chronic interstitial lung disease without gross acute airspace disease. External Record Review External record reviewed: Inpatient record, Office record and Outpatient record Prescription Management I considered prescription management with: Antibiotic and Other Discharge Plan Discharge Clinical Impression: Bronchitis Patient Disposition: Home, Self-Care Instructions: Acute Bronchitis (ED) Additional Instructions: You were evaluated in the emergency department today for cough and shortness of breath. You are being treated for bronchitis with an antibiotic, please complete the full course as prescribed. You are also being prescribed a short course of steroids to decrease inflammation. You are being prescribed an inhaler which you can use every 4-6 hours as needed for shortness of breath. Please follow-up with your primary care provider this week. Return to the emergency department if you develop worsening shortness of breath, difficulty breathing, chest pain, fever not improved with Tylenol or ibuprofen, or any other concerning symptoms. Follow up with your primary care provider regarding your chest x-ray results. XR/XR chest 2V IMPRESSION: Concerning chronic interstitial lung disease without gross acute airspace disease. Prescriptions: New azithromycin 250 mg tablet See Rx Instructions .ROUTE .COMPLEX Qty: 6 0RF Rx Instructions: For 250 mg dose pack: take 500 mg today (day 1), then 250 mg for 4 days (days 2-5) prednisone 20 mg tablet 20 mg PO DAILY Qty: 5 0RF albuterol sulfate [Ventolin HFA] 90 mcg/actuation HFA aerosol inhaler 2 puff inhalation Q4-6H PRN (Reason: shortness of breath or wheezing) Qty: 6.7 0RF No Action atorvastatin 10 mg tablet 10 mg PO BEDTIME 90 Days Qty: 90 1RF calcium carbonate [Oyster Shell Calcium] 500 mg calcium (1,250 mg) tablet 500 mg PO DAILY 90 Days Qty: 90 2RF amitriptyline 10 mg tablet 10 mg PO BEDTIME 90 Days Qty: 90 0RF cholecalciferol (vitamin D3) 50 mcg (2,000 unit) tablet 50 mcg PO DAILY Qty: 90 0RF magnesium oxide 400 mg (241.3 mg magnesium) tablet 400 mg PO BEDTIME 90 Days Qty: 90 0RF guaifenesin [Mucinex] 600 mg tablet extended release 12hr 600 mg PO BID PRN (Reason: cough) 5 Days Qty: 10 0RF loratadine [Claritin] 10 mg tablet 10 mg PO DAILY Print Language: Divehi
--- OUTSIDE RECORDS SUMMARY | 2025-03-14 08:31 | XMS_ITS | Patient Health Record ---
Author Organization [facility] Address [address] [place] [address] Care Team Providers Care Marine Resource Economist Name Role Phone Aranza Robertson Primary Care Provider Unavailab Sheldon Sevilla Jr Unavailable Reason For Referral No Information Plan Of Treatment No Information Insurance Providers Payer Name Payer Address Payer Phone Subscriber Number Group Number Insured Name Patient Relationship to Insured Coverage Start Date Coverage End Date [facility] [employer] [facility] [address] [place] [address] [id number] VELMA GUEVARA Self - patient is the insured
[2025-03-14 08:33] LABS: MANUAL DIFF FLAG NO
[2025-03-14 08:48] LABS: Alanine Aminotransferase 44 U/L (0-31); Albumin Level 4.3 g/dL (3.5-5.0); Alkaline Phosphatase 92 U/L (39-117); Anion Gap 13 (12-20); Aspartate Amino Transferase 33 U/L (5-31); Blood Urea Nitrogen 14 mg/dL (9-16); Calcium 9.8 mg/dL (8.4-10.2); Carbon Dioxide 27 mmol/L (22-29); Chloride 106 mmol/L (96-108); Creatinine Clr Calc Pharmacy 60.9; Estimated Glomerular Filt Rate > 60; Hematocrit 45.2 % (37.0-47.0); Hemoglobin 15.2 g/dl (12.0-16.0); Imm Gran Abs Auto 0.01 X10*3/uL (0.00-0.03); Imm Gran Pct Auto 0.2 % (0.0-0.4); Lymphocytes Absolute Auto 2.3 X10*3/uL (1.2-4.9); Mean Corpuscular HGB Conc 33.6 g/dl (31.0-35.0); Mean Corpuscular Hemoglobin 28.3 pg (27.0-33.0); Mean Corpuscular Volume 84.2 fL (80.0-98.0); NRBC Abs Auto 0.000 X10*3/uL (0.0-0.012); NRBC Pct Auto 0.0 /100WBC (0.0-0.2); Platelet Count 244 X10*3/uL (160-400); Potassium 3.9 mmol/L (3.3-5.1); Red Blood Count 5.37 X10*6/uL (4.20-5.50); Sodium 142 mmol/L (135-145); Total Protein 7.6 g/dL (6.5-8.0); White Blood Count 5.2 X10*3/uL (4.8-10.8)
[2025-03-14 08:53] LABS: COVID-19 Test Negative (Negative); IDNOW Serial# 55D5AD1C; IDNOW Serial# 58CA691E; Influenza B2 Negative (Negative)
[2025-03-14 08:55] LABS: NT Pro B Type Natriuretic Pept 92.6 pg/mL (<300)
[2025-03-14 10:06] VITALS: BP 162/84; PULSE 77; RESP 18; TEMP 36.7; O2SAT 97
== END 2025-03-14 10:07 | disposition home or self-care (01) ==
PROVIDERS: Registered Nurse Emergency; Emergency Provider Emergency Medicine Emergency Medical Services; PCP Internal Medicine
DX: R05.9 Cough, unspecified (principal); R06.02 Shortness of breath; Z79.899 Other long term (current) drug therapy; Z11.52 Encounter for screening for COVID-19
CPT/HCPCS: 71046; 80053; 83880; 85025; 87502; 87635; 99282; 99283

== ENCOUNTER → 2025-03-14 08:13 | Outpatient (BNV) | payer MEDICARE, SELFPAY | PROVIDERS: Emergency Provider Emergency Medicine Emergency Medical Services; PCP Internal Medicine; Visit Provider Radiology Diagnostic Radiology | DX: R05.9 Cough, unspecified (principal) | CPT/HCPCS: 71046 ==

== ENCOUNTER 2025-05-14 07:09 | Outpatient (AMB) | payer MEDICARE, SELFPAY ==
--- OUTSIDE RECORDS SUMMARY | 2025-05-14 07:11 | XMS_ITS | Data Portability ---
Author Organization [facility], [address] Address [address] [place] [address] Care Team Providers Care Wine Specialist Name Role Phone MIKEL BARRIOS Primary Care Provider [phone] Assessment No assessment recorded. Plan of Treatment Reminders Order Date Submit Date Provider Last Modified By Organization Details Last Modified Time Details Appointments None recorded. Lab None recorded. Referral None recorded. Procedures None recorded. Surgeries None recorded. Imaging None recorded. Medication Orders benzonatate 100 mg capsule 2022 023 [id number], [address] [place], [address], 3 16:21:21 prednisone 10 mg tablet 2022 023 [id number], [address] [place], [address], 3 16:21:22 albuterol sulfate 2.5 mg/3 mL (0.083 %) solution for nebulizatio n 2022 023 Not available 15:54:41 ipratropium bromide 0.02 % solution for inhalation 2022 023 [email or web address] Not available 3 15:54:41 Patient TargetsNo targets recorded. Patient Instructions Encounter Date Encounter Id Patient Instructions Last Modified By Organization Details Last Modified Time 12/16/2022 [id number] cough: care instructions [email or web address] Not available 12/16/2022 15:40:47 You were prescribed [...] Do not take this medication with Ibuprofen Not available 12/16/2022 15:48:08 Reason for Referral None Reported. Problems No Known Problems Procedures Surgical History Date Name Laterality Status Provider Name and Address Organization Details Recorded Time 3 Nebulizer Treatment completed YANDY CHAUHAN [facility] [place], [address], [place] - [facility] 12/16/2022 16:20:58 Imaging [...] weight Body temperature Respiratory rate Oxygen saturation Heart rate Systolic And Diastolic Provider Name and Address Organization Details Last Updated DateTime 3 157.48 cm 23.8 kg/m2 52379.0 1 g 97 [degF] 18 /min 98 % 81 /min 132/82 mm[Hg] YESSENIA PEREA [place] - [facility] 15:24:36 Social History Question Answer Notes LastModified by Organizat Letao Details LastModified Time Tobacco Smoking Status Never Smoker YESSENIA prieto, [place] - [facility] 12/16/2022 15:23:03 Have You Recently Traveled Abroad? No [email or web address] Information not available 12/16/2022 Sex: Unknown Functional Status Question Answer Note LastModified by Organizat ion Details LastModified Time Do you use any illicit or recreational drugs? No [email or web address] Information not available 12/16/2022 Do you or have you ever used any other forms of tobacco or nicotine? No [email or web address] Information not available 12/16/2022 What is your level of alcohol consumption? None [email or web address] Information not available 12/16/2022 Mental Status None recorded. Family History Relationship Description Onset Age of this Age Resolved Age Notes LastModified by Organization Details LastModified Time Father No current problems or disability [email or web address] Not available 12/16 15:22:49 Mother No current problems or disability [email or web address] Not available 12/16 15:22:49 Medical History No medical history recorded. Gynecological HistoryNo gynecological history recorded. Obstetrics History GPAL:G 0 P 0 0 0 0 Past Encounters Encounter ID Performer Location Encounter Start Date Encounter Closed Date Diagnosis/Indication Diagnosis SNOMED-CT Code Diagnosis ICD10 Code Diagnosis IMO Codes Diagnosis Note [id number] [facility] [facility] [address] [place] [address] 11/28/2021 09:41:55 11/28/2021 13:44:50 [id number] YANDY CHAUHAN [address] [address] [place] [address] 12/16/2022 12:07:28 12/16/2022 16:23:31 Cough 07045517 R05.9 Strider resolved after nebulizer. Laryngotracheitis 358552 01 J04.2 You are being treated for [...] or lung pathology. Thank you for using [facility] today - please don't hesitate to contact [...] ID Strauss Member ID Guarantor Name 12/19/[address] [place] [address] [id number] Christi Ahn [id number] Christi Anh Notes Date Note Type Note Provider Name and Address Organization Details Recorded Time 12/16/2022 text/html CoughReported by PatientHPIFor quality, patient reportsdry. For source of patient information, patient reportsinformation obtained from patientandpatient arrived at urgent care ambulatory. For severity, patient reportsmild. For duration, patient reports4 days. For timing, patient reportssudden. For context, patient reportsnon-smoker(no exposures to chemicals.). For modifying factors, patient reportscough suppressant(lots of otc medication.). For associated symptoms, patient reportsno fever.The patient reports headache and cough for about 4 days. The patient states that she gets this every year at the same time. The patient reports no history of asthma or COPD. Non smoker. Denies runny nose or sore throat. No ear pain. YANDY CHAUHAN [address] [place], [address], [place] - [facility] 12/16/2022 16:21:55 OBGyn Episode No OBEpisode recorded.
--- OUTSIDE RECORDS SUMMARY | 2025-05-14 07:11 | XMS_ITS | Patient Health Record ---
Author Organization [place] [facility] Address [address] [place] [address] Care Team Providers Care Roll Forming Supervisor Name Role Phone Aranza Robertson Primary Care Provider Unavailab Sheldon Sevilla Jr Unavailable [phone] Reason For Referral No Information Plan Of Treatment No Information Insurance Providers Payer Name Payer Address Payer Phone Subscriber Number Group Number Insured Name Patient Relationship to Insured Coverage Start Date Coverage End Date [facility] [address] [place] [address] [phone] [id number] VELMA GUEVARA Self - patient is the insured
[2025-05-14 07:34] VITALS: BP 128/78; PULSE 73; O2SAT 98; BMI 23.0
--- NOTE | 2025-05-14 07:34 | A.OFFPC_ITS ---
Vital Signs 05/14/25 07:34 Height 5 ft 1 in Weight 122 lb BMI 23.0 BP 128/78 Blood Pressure Location Lt brachial Position Sitting Pulse 73 Pulse Source Pulse Oximeter Pulse Oximetry (%) 98 Oxygen Delivery Method Room Air Intake Visit Reasons: PE - see comments Disaster Recovery Manager Required: No Accompanied by: Self / Same As Patient Allergies No Known Allergies Allergy (Verified 05/14/25 07:44) Medication List - Last Reconciled 05/14/25 by Debra Hart MD albuterol sulfate 90 mcg/actuation (Ventolin HFA) 2 puffs inhalation Q4-6H PRN amitriptyline 10 mg PO BEDTIME 90 days atorvastatin 10 mg PO BEDTIME 90 days calcium carbonate (Oyster Shell Calcium) 500 mg PO DAILY 90 days cholecalciferol (vitamin D3) 50 mcg PO DAILY loratadine (Claritin) 10 mg PO DAILY magnesium oxide 400 mg PO BEDTIME 90 days Tobacco use date assessed: 11/12/24 Fall risk assessment: No Falls in past year Last assessed Fall Risk: 05/14/25 Dental Screening Dental Screen Date: 11/12/24 HPI HPI Comments History of Present Illness Details The patient is a 69 year old individual presenting for a physical examination. The patient is up to date on vaccinations, having received a Td vaccine in 2021 and a pneumonia vaccine last year. The patient will receive an influenza vaccine today. A DEXA scan in June of this year showed osteopenia, which is being treated with calcium and vitamin D. The last mammogram was in September and was normal. A colonoscopy last year revealed a tubular adenoma, diverticulopathy, and hemorrhoids, and the patient wishes to have a repeat procedure in 1-2 years. The patient has a history of recurrent bronchitis and asthma, with an episode in February that led to an emergency room visit where COVID-19 was ruled out. The patient has previously taken amitriptyline 10 mg for headaches but has discontinued it due to improvement in symptoms. The patient has no known drug allergies. Past surgical history includes a tubal ligation. Family history is significant for a father, age 89, who has bone cancer. The patient's mother is . [facility] Medical History Chronic headaches Osteopenia Left lower quadrant pain High cholesterol Surgical History History of colonoscopy History of tubal ligation Family History Father Cancer Mother Cancer Social History Housing: House Alcohol intake: never Patient Tobacco Use Status: Never used Tobacco Tobacco use type: Cigarette e-Cigarette/Vaping Use: Never Used Second Hand Smoke Exposure: No service: No Current occupational status: retired Current occupational exposures/hazards: No Cognitive needs: No Hearing needs: No Vision needs: Yes Questionnaire PHQ-9 Over the last 2 weeks, how often have you been bothered by any of the following problems? 1. Little interest or pleasure in doing things: not at all 2. Feeling down, depressed, or hopeless: not at all 3. Trouble falling or staying asleep, or sleeping too much: not at all 4. Feeling tired or having little energy: not at all 5. Poor appetite or overeating: not at all 6. Feeling bad about yourself - or that you are a failure or have let yourself or your family down: not at all 7. Trouble concentrating on things, such as reading the newspaper or watching television: not at all 8. Moving or speaking so slowly that other people could have noticed. Or the opposite - being so fidgety or restless that you have been moving around a lot more than usual: not at all 9. Thoughts that you would be better off or of hurting yourself in some way: not at all Total score: 0 Depression Screening Interpretation: Negative Depression Screening Done: Yes 84838 - PHQ-9 Billing: Yes Source: Developed by Drs. Boy Seals, Jenise Rolon, Tristen Wheeler and colleagues, with an educational tayler from [employer]. Thrive Questionnaire Date Thrive assessed: 05/14/25 JOAQUIN-7 AMB Questionnaire JOAQUIN-7 Date JOAQUIN - 7 assessed: 11/12/24 Source: Developed by Drs. Boy Seals, Tristen Blackwell and colleagues, with an educational tayler from [employer]. Review of Systems Const All systems reviewed & are unremarkable except as noted in HPI and below Card Denies chest pain at rest, Denies chest pain with activity, Denies edema, Denies irregular heart rhythm, Denies claudication, Denies dyspnea, Denies dyspnea on exertion, Denies orthopnea, Denies paroxysmal nocturnal dyspnea and Denies slow heart rate Resp Denies cough, Denies dyspnea and Denies dyspnea on exertion GI Denies abdominal pain, Denies change in bowel habits, Denies excessive flatus, Denies nausea and Denies vomiting Physical exam (Primary Care) Vital Signs: Last Vital Signs Pulse 73 05/14/25 07:34 BP 128/78 05/14/25 07:34 Pulse Ox 98 05/14/25 07:34 Oxygen Delivery Method Room Air 05/14/25 07:34 BMI result Body Mass Index 23.0 Tobacco/Smoking Status: Tobacco use Status Tobacco use date assessed 11/12/24 05/14/25 07:41 Patient Tobacco Use Status Never used Tobacco 05/14/25 07:41 Tobacco use type Cigarette 05/14/25 07:41 e-Cigarette/Vaping Use Never Used 05/14/25 07:41 PHQ-9: PHQ-9 Score PHQ-9: Total score 0 05/14/25 07:41 Depression Screening Interpretation: Negative Thrive Assessment: Date of Thrive Assessment Date Thrive assessed 05/14/25 05/14/25 07:41 HENPR Head: Yes normal to inspection, Yes normocephalic and Yes atraumatic Ears: external ears normal Eyes General: appearance normal, both eyes and all related structures Eyelids: Yes eyelids normal Conjunctivae: conjunctivae normal Neck Neck: Yes normal visual inspection and Yes supple Resp Effort & Inspection: normal respiratory effort Auscultation: clear to auscultation bilaterally Cardio Jugular venous distension: no JVD Rate: regular rate Rhythm: regular rhythm Heart sounds: S1 normal heart sound present and S2 normal heart sound present GI Inspection: Yes normal to inspection Palpation (GI): Soft to palpation and nontender Auscultation: normal bowel sounds Skin General skin exam: no rashes or lesions noted Neuro General: no focal motor deficits Extrem General: Yes full ROM Psych Appearance: grossly normal Office Procedures Flu Questionnaire Does the patient have a severe egg allergy?: No Does the patient have severe life threatening allergies?: No Does the patient have a fever or illness today?: No Has the patient ever had Guillain-[place] Syndrome?: No Has the patient ever had any past reaction to a flu shot?: No Immunizations Fluarix 1006-5047 (PF) 45 mcg (15 mcg x 3)/0.5 mL IM syringe Performing Provider: Debra Hart MD [facility] Administered by: Jeannine Smiley CMA on 05/14/25 07:41 Dose Route Admin Location Dispensed Lot Number Expiration Date NDC Core Winder 0.5 mL IM Left Deltoid 0.5 mL [id number] 12/16/25 05114-359-54 [facility] VIS Given Date VIS Provided VIS Publication Date 05/14/25 Single Vaccine 24 Eligibility Eligibility Date Funding Source Not [facility] Eligible 05/14/25 Private Coding Level of Care Code Est Pt Prev Care >65y(02775) Diagnoses Adult general medical exam Z00.00 Additional Codes PHQ-9 - 04728 - PHQ-9 Billing: Yes ([id number]) Time Spent (min) 30 Assessment & Plan Assessment & Plan (1) Adult general medical exam: Code(s): Z00.00 - Encounter for general adult medical examination without abnormal findings Category: Medical Plan Plan 1. Physical exam The patient will continue treatment with calcium and vitamin D. A follow-up DEXA scan is scheduled for 2026. A referral will be provided for a repeat colonoscopy in 1-2 years. Tdap due 2031. Continue yearly mammogram. No need for Pap smear due to age. Orders: Orders Influenza [id number] Immunization Today Z23 - Encounter for immunization Lipid Panel 1 Year E78.5 - Hyperlipidemia, unspecified Vitamin D 25-OH Total 1 Year E55.9 - Vitamin D deficiency, unspecified Comprehensive [place]. Panel Fast 1 Year Z00.00 - Encounter for general adult medical examination without abnormal findings Referrals Open Access Screening Colonoscopy Referral Z12.12 - Encounter for screening for malignant neoplasm of rectum Medications: Refilled albuterol sulfate 90 mcg/actuation (Ventolin HFA) 2 puffs inhalation Q4-6H PRN 6.7 grams 0RF shortness of breath or wheezing
== END 2025-05-14 07:57 | disposition home or self-care (01) ==
LOC: HO.HMCH 07:09
PROVIDERS: PCP Internal Medicine; Visit Provider Internal Medicine
DX: Z23 Encounter for immunization (principal); Z00.00 Encounter for general adult medical examination without abnormal findings

== ENCOUNTER → 2025-05-14 07:09 | Outpatient (BNVA) | payer MEDICARE, SELFPAY | PROVIDERS: PCP Internal Medicine; Visit Provider Internal Medicine | DX: Z00.00 Encounter for general adult medical examination without abnormal findings (principal); Z13.31 Encounter for screening for depression; Z23 Encounter for immunization; E78.5 Hyperlipidemia, unspecified; E55.9 Vitamin D deficiency, unspecified; M85.80 Other specified disorders of bone density and structure, unspecified site; J45.909 Unspecified asthma, uncomplicated | CPT/HCPCS: 90471; 90656; 96127; 99397 ==